=== PATIENT | female | born 1990 | race Caucasian/White ===

== ENCOUNTER 2022-04-11 15:33 | Emergency (ER) | payer OTHER, SELFPAY ==
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
[2022-04-11 15:37] VITALS: BP 135/82; PULSE 67; RESP 18; TEMP 36.8; O2SAT 100
--- NOTE | 2022-04-11 17:41 | PC.NURSE ---
Patient denies vaginal bleeding or abdominal cramping.
--- NOTE | 2022-04-11 17:45 | PC.NURSE ---
Dr. Diaz at bedside to assess pt.
--- NOTE | 2022-04-11 18:26 | PC.NURSE ---
Patient off unit to US.
--- NOTE | 2022-04-11 18:26 | PC.NURSE ---
pt at ultrasound at this time
[2022-04-11 18:51] LABS: Basophils Percent Auto 0.4 % (0.2-1.2); Eosinophils Absolute Auto 0.1 K/mm3 (0-0.3); Eosinophils Percent Auto 0.6 % (0-4.4); Hematocrit 38.8 % (37.0-47.0); Immature Granulocyte Absolute 0.03 K/mm3 (0.00-0.031); Immature Granulocyte Percent A 0.3 % (0-0.5); Lymphocytes Absolute Auto 2.65 K/mm3 (0.9-3.2); Lymphocytes Percent Auto 26.7 % (18.3-44.2); Mean Corpuscular HGB Conc 33.5 g/dl (32-36); Mean Corpuscular Hemoglobin 31.1 pg (26-34); Mean Corpuscular Volume 92.8 fl (80-100); Monocytes Absolute Auto 0.6 K/mm3 (0.1-0.6); Monocytes Percent Auto 5.8 % (2.6-8.5); Neutrophils Absolute Auto 6.6 K/mm3 (1.3-6.7); Neutrophils Percent Auto 66.2 % (45.5-73.1); Platelet Count Result 243 k/mm3 (150-375); Red Blood Count 4.18 M/mm3 (4.2-5.4); Red Cell Distribution Width 13.2 % (11.5-14.5); White Blood Count 9.9 K/mm3 (4.5-10.0)
[2022-04-11 18:55] LABS: Appearance Urine Clear (Clear); Bilirubin Urine Negative (Negative); Color Urine Yellow (Yellow); Glucose Urine UA Negative (Negative); Ketones Urine Negative (Negative); Leukocyte Esterase Ur Negative LEU/UL (Negative); Nitrate Urine Negative (Negative); Protein Urine Negative (Negative); Urobilinogen Urine 0.2 mg/dL (<2.0)
[2022-04-11 18:59] LABS: Add Urine Microscopic? YES; Blood Urine Trace-Intact (Negative)
[2022-04-11 19:06] LABS: Alanine Aminotransferase 11 U/L (6-35); Albumin Level 4.4 g/dL (3.5-5.1); Alkaline Phosphatase 72 U/L (38-126); Anion Gap 8 mmol/L (8-16); Aspartate Amino Transferase 22 U/L (14-36); Bilirubin,Total 0.2 mg/dL (0.2-1.3); Blood Urea Nitrogen 6 mg/dL (7-17); Calcium 8.8 mg/dL (8.4-10.2); Carbon Dioxide 25 mmol/L (22-30); Chloride 102 mmol/L (98-107); Estimated CRCL calculation 144 ml/min; Estimated Glomerular Filt Rate > 60; Glucose 139 mg/dL (65-110); Potassium 3.8 mmol/L (3.4-5.0); Sodium 135 mmol/L (137-145)
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
[2022-04-11 19:15] LABS: Budding Yeast Urine Present /hpf; Mucus Urine Rare /lpf; Squamous Epithelial Cell Urine Rare /hpf (Few); WBC Urine 0-3 /hpf
== END 2022-04-11 19:41 | disposition home or self-care (01) ==
PROVIDERS: Emergency Provider General Practice
DX: O9A.211 Injury, poisoning and certain other consequences of external causes complicating pregnancy, first trimester (principal); S13.4XXA Sprain of ligaments of cervical spine, initial encounter; Z96.649 Presence of unspecified artificial hip joint; Z3A.11 11 weeks gestation of pregnancy; V43.52XA Car driver injured in collision with other type car in traffic accident, initial encounter
CPT/HCPCS: 36415; 76801; 76817; 80053; 81001; 85025; 85461; 99284

== ENCOUNTER 2025-08-14 12:17 | Emergency (ER) | payer OTHER, SELFPAY ==
--- NOTE | ~2025-08-14 | CT_ITS ---
CT ABDOMEN AND PELVIS WITHOUT CONTRAST Clinical History: R flank pain, RLQ abd pain, hematuria, uti sx's Comparison: None Technique: Unenhanced axial images lung bases to symphysis pubis Coronal, sagittal reformats CT images acquired with automatic exposure control for dose reduction DLP: 1111 mGy-cm Findings: Without intravenous contrast, sensitivity for detecting visceral parenchymal abnormalities decreased. Lung bases: Clear. Visualized heart and pericardium: Unremarkable. Liver: Hepatomegaly. Steatosis. Gallbladder: Unremarkable. Spleen: Unremarkable. Pancreas: Unremarkable. Adrenal glands: Unremarkable. Kidneys: Right kidney- No hydronephrosis. No renal stones. Left kidney- No hydronephrosis. No renal stones. Distal esophagus/stomach: Unremarkable. Small bowel loops: Normal caliber and wall thickness. Colon: Normal caliber and wall thickness. Normal RLQ appendix. Nodes: No enlarged nodes. Peritoneum: No ascites. No free intraperitoneal air. Urinary bladder: Unremarkable. Uterus: Unremarkable. Adnexa: No masses. Bones: No acute bony abnormality. Soft tissues: Unremarkable. Unopacified abdominal aorta: No aneurysmal dilatation. IMPRESSION: 1. No acute findings. Reviewed, dictated and finalized at location R. IMPRESSION: 1. No acute findings.
[2025-08-14 12:24] VITALS: BP 150/96; PULSE 78; RESP 20; TEMP 36.6; O2SAT 97
--- OUTSIDE RECORDS SUMMARY | 2025-08-14 12:53 | XMS_ITS | Clinical Summary ---
Author Organization [facility] Address [address] [place] [address] Care Team Providers Care Rubber Compounder Supervisor Name Role Phone Gilmar Mckenna MD Unavailable Chanel De Leon MD Primary Care Provider [phone] Source Comments [facility],non-owned Affiliates and Associated Physician Practices is amultiple site organization consisting of ambulatory clinics and hospital sitesin [place], [place]. This disclosure is being madepursuant to the Care Everywhere program and may not contain all information available regarding this patient. Last updated 18.[facility] Allergies Active Allergy Reactions Criticality Noted Date Comments Adhesive Sensitivity Rash Medium 08/15/2020 Azithromycin Rash,Urticaria Medium 09/04/2016 Medications * Be aware that medications may not be up to date on this document. Alwaysverify current medications with the patient. magnesium 250 MG tablet Take 1 tablet by mouth at bedtime 020 Active vitamin D (CHOLECACIFEROL) 125 MCG (5000 UT) capsule Take 1 (one) capsule by mouth once daily Active norgestimate-ethi nyl estradiol (Ortho-Cyclen; Mononessa; Previfem; Sprintec) 0.25-35 MG-MCG tablet Take 1 (one) tablet by mouth once daily 84 tablet 4 07/29/2 024 Active clobetasol (Temovate) 0.05 % solution Apply to affected area as needed (as needed) Active EPINEPHrine (Epipen) 0.3 MG/0.3ML auto-injector pen Inject 0.3 mL into muscle once as needed for Anaphylaxis Active BD Insulin Syringe U/F 31G X 5/16 0.3 ML syringe 1 (one) Each by Injection route as directed Active cyclobenzaprine (Flexeril) 10 MG tabletIndications :Peripheral polyneuropathy Take 0.5 (one-half) tablet to 1 (one) tablet by mouth nightly as needed for Muscle Spasms 90 tablet 3 Active metFORMIN ER 24hr (Glucophage XR) 500 MG tabletIndications :Prediabetes Take 1 (one) tablet by mouth 2 times daily 180 tablet 3 Active Vit-Fe Fumarate-FA ( vitamin) 28-0.8 MG tablet Take 1 (one) tablet by mouth once daily 90 tablet 3 Active escitalopram (Lexapro) 20 MG tablet Take 0.5 (one-half) tablet by mouth once daily 90 tablet 4 Active Emgality 120 MG/ML auto-injector pen ADMINISTER 1 ML UNDER THE SKIN EVERY 30 DAYS 1 mL 11 Active PreviDent 5000 Booster Plus 1.1 % Active nitrofurantoin monohyd macro crystals (Macrobid) 100 MG capsule Take 1 (one) capsule by mouth every 12 hours Active Nurtec 75 MG tabletIndications :Chronic migraine without aura without status migrainosus, not intractable DISSOLVE ONE TABLET BY MOUTH ONCE DAILY NEEDED FOR MIGRAINE; MAX OF 1 TABLET PER DAY, 8 TABLETS PER 30 DAYS 8 tablet Active polyethylene glycol 3350 (Miralax) 17 GM/SCOOP powderIndications :Constipation, unspecified constipation type,Abdominal bloating Take 17 (seventeen) g by mouth once daily 510 g 1 Active famotidine (Pepcid) 20 MG tabletIndications :Abdominal bloating,Gastroes ophageal reflux disease without esophagitis Take 1 (one) tablet by mouth at bedtime for 14 days 14 tablet 2024 Active rimegepant (Nurtec) 75 MG tabletIndications :Chronic migraine without aura without status migrainosus, not intractable Take 75 mg by mouth once daily as needed for Migraine Max 1 tab/day, max 8 tabs/30 days. 8 tablet 025 2024 Discontinued Active Problems Patient Care Coordination No te Formatting of this note migh t be different from the original. Nopp/mfcc 05/2018 Problem Noted Date Diagnosed Date Catathrenia 05/30/2025 Chronic fatigue 05/30/2025 Excessive daytime sleepiness 05/30/2025 Sleep related hypoxia 05/30/2025 Class 2 obesity without seri ous comorbidity with body mass index (BMI) of 39.0 to 39.9 in adult 03/15/2025 Hot flashes 08/03/2024 Painful orthopaedic hardware 09/24/2021 Status post osteotomy 06/25/2021 Femoroacetabular impingement of right hip 2020 Chronic migraine without aur a without status migrainosus, not intractable 10/29/2020 Congenital dysplasia of right hip 10/17/2020 Right hip pain 08/27/2020 Small fiber neuropathy 04/23/2017 Prediabetes 04/14/2016 Overview (01/03/2020): Overview: HbA1C 6.1%-04/07 ; being followed by internet sales manager at [facility] Has been on metformin yrs ago and felt nauseated. Refer endocrine so can see dietary Peripheral polyneuropathy 03/27/2016 Obstructive sleep apnea syndrome 06/29/2014 ANNIE (generalized anxiety disorder) 05/11/2012 Overview (09/10/2022): Lexapro 20 mg daily PCOS (polycystic ovarian syndrome) 05/11/2012 Overview (09/10/2022): Treated with metformin in past Seasonal allergies Overview (09/10/2022): Rx - claritin +/- Flonase Encounters Date Type Department Care Team Description 08/10/2025 2:33 PM CDT - 08/10/2025 11:59 PM CDT Hospital Encounter [facility] OP DRAW STATION [address] [place] [address] Discharge Disposition: Home or Self Care 08/10/2025 9:00 AM CDT Office Visit [facility] - Internal Med [address] [place] [phone] Constipation, unspecified constipation type (Primary Dx); Abdominal bloating; Gastroesophageal reflux disease without esophagitis 08/10/2025 Travel 07/29/2025 Refill [facility] [address] [address] Gilmar Mckenna MD Refill Request 07/18/2025 1:30 PM CDT Office Visit [facility] - ENT [address] [place] [phone] Francois Ellis APRN-CNP Subjective hearing loss (Primary Dx); Chronic migraine without aura without status migrainosus, not intractable; Bruxism; Allergic rhinitis due to other allergic trigger, unspecified seasonality 07/18/2025 11:00 AM CDT Testing Visit [facility] - ENT [address] [place] [phone] Lowe, Nuha, AuD Tinnitus of both ears ; Hearing difficulty of both ears; Dizziness 07/18/2025 Travel 07/11/2025 2:15 PM CDT Office Visit [facility] - ENT [address] [place] [phone] Francois Ellis APRN-CNP Subjective hearing loss (Primary Dx); Chronic migraine without aura without status migrainosus, not intractable; Bruxism; Allergic rhinitis due to other allergic trigger, unspecified seasonality 07/11/2025 Travel 07/07/2025 Travel 06/28/2025 2:00 PM CDT - 06/28/2025 11:59 PM CDT Hospital Encounter [facility] - Ultrasound [address] [place] [address] Maya Valladares MD Discharge Disposition: Home or Self Care 06/28/2025 1:23 PM CDT - 06/28/2025 1:59 PM CDT Hospital Encounter [facility] Breast [facility] [address] [place] [address] Maya Valladares MD Discharge Disposition: Home or Self Care 06/07/2025 10:00 AM CDT Office Visit [facility] - Internal Med [address] [facility], [place] [address] Cellulitis of right little finger (Primary Dx) 06/07/2025 Travel 06/01/2025 8:20 AM CDT Procedure visit [facility] [address] [facility] [address] [place] [address] Gilmar Mckenna MD Chronic migraine without aura without status migrainosus, not intractable 06/01/2025 Telephone [facility] - Centralized Scheduling [address] [place] [phone] eRx Owens MD Appointment 05/29/2025 3:20 PM CDT Office Visit [facility] - Sleep Services [address] [facility] [address] [place] [phone] Komal Rich, APNP-MARKETING EDITOR MINA (obstructive sleep apnea) (Primary Dx); Sleep related hypoxia; Excessive daytime sleepiness; Chronic fatigue; Catathrenia; Prediabetes; Obesity (BMI 30-39.9); Air leak; CPAP use counseling 05/29/2025 Travel 05/24/2025 Results Follow-Up [facility] OP DRAW STATION [address] [place] [address] Maay Valladares MD 05/23/2025 12:35 PM CDT - 05/23/2025 11:59 PM CDT Hospital Encounter [facility] OP [facility]RAW ST[facility] [address] [place] [address] Discharge Disposition: Home or Self Care 05/23/2025 Travel 05/22/2025 Travel 05/22/2025 Telephone [facility] [address] [facility] [address] [place] [phone] Maya Valladares MD 05/20/2025 Refill [facility] [address] [facility] [address] [place] [address] Gilmar Mckenna MD Refill Request 05/19/2025 3:00 PM CDT Office Visit [facility] [address] [facility] [address] [place] [phone] Maya Valladares MD Hot flashes (Primary Dx); Intolerance to heat; Breast pain 05/19/2025 Travel from Last 3 Months Immunizations Immunization Administration Dates Next Due COVID PFIZER BIVALENT 12Y+ 30mcg/0.3ML Covid Moderna primary monova lent 12+ yr 0.5mL 11/09/2021 Covid Pfizer primary monoval ent 12+ yr 0.3mL Purple cap 09/26/2021,03/10/2021,02/17/2021 INFLUENZA VACCINE 09/11/2021 INFLUENZA VACCINE, TRIV. (FL UZONE; FLULAVAL; FLUARIX; AFLURIA TRIVALENT; 6MO+), 0.5 ML (IIV3) 11/09/2024 MMR 10/22/2022() TDAP (7yrs+) 08/04/2022,12/25/2018 Family History Medical History Relation Name Comments None Known Brother 1 None Known Brother 2 Arrhthymia Father afib Diabetes - Type 2 Father Hypertension Father Sleep Disorder - Sleep apnea Father Hemochromatosis Maternal Grandfather Diabetes - Type 2 Maternal Grandmother None Known Mother Aneurysm, Brain Paternal Grandmother Relation Name Status Comments Brother 1 Alive Brother 2 Alive Father Alive Maternal Grandfather Maternal Grandmother Mother Alive Paternal Grandmother Social History Tobacco Use Types Packs/Day Years Used Date Smoking Tobacco: Never Smokeless Tobacco: Never Tobacco Cessation:Counseling Given: Not Answered Alcohol Use Standard Drinks/Week Comments Not Currently 3 (1 standard drink = 0.6 oz pur e alcohol) monthly 3-4 drinks Overall Financial Resource Strain (CARDIA) Answe r Date Recorded How hard is it for you to pa y for the very basics like food, housing, medical care, and heating? Not hard at all 10/21/2022 PHQ-2 Answer Date Recorded Patient Health Questionnaire-2 Score 0 06/07/2025 Hunger Vital Sign Answer Date Recorded Within the past 12 months, y ou worried that your food would run out before you got the money to buy more. Never true 10/21/20 22 Within the past 12 months, t he food you bought just didn't last and you didn't have money to get more. Never true 10/21/2022 PRAPARE - Transportation Answer Date Re corded In the past 12 months, has l ack of transportation kept you from medical appointments or from getting medications? No 09/24 In the past 12 months, has l ack of transportation kept you from meetings, work, or from getting things needed for daily living? No 10/21/2022 Housing Stability Vital Sign Answer Juan Pablo e Recorded In the last 12 months, was t here a time when you were not able to pay the mortgage or rent on time? No 10/21/2022 Number of Places Lived in the Last Year Not on f ile 10/21/2022 In the last 12 months, was t here a time when you did not have a steady place to sleep or slept in a alf (including now)? No 10/21/2022 [place] Depression Scale Answer Date Recorded RETIRED: Total Score 2 10/24/2022 Last EPDS Self Harm Result Not on file 10/24 Education Answer Date Recorded What is the highest level of school you have completed or the highest degree you have received? 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 Not on file Not on fi le Last Filed Vital Signs Vital Sign Reading Time Taken Comments Blood Pressure 126/87 08/10/2025 8:58 AM CDT Pulse 85 08/10/2025 8:58 AM CDT Temperature 36.8 C (98.2 F) 06/07/2025 10:06 AM CDT Respiratory Rate 16 11/09/2024 1:09 PM MOBILE DEVELOPMENT MANAGER Oxygen Saturation 97% 08/10/2025 8:58 AM CDT Inhaled Oxygen Concentration - - Weight 102.1 kg (225 lb) 08/10/2025 8:58 AM CDT Height 160 cm (5' 3) 08/10/2025 8:58 AM CDT Body Mass Index 39.86 08/10/2025 8:58 AM CDT Plan of Treatment Upcoming Encounters Date Type Department Care Team (Late st Contact Info) Description 08/21/2025 3:00 PM CDT Office Visit [facility] Management [facility] [address] [facility] [address] [place] [address] [place] [address] [facility] [address] [place] [address] 08/24/2025 10:00 AM CDT Procedure visit [facility] [address] [place] [address] Gilmar Mckenna MD [address] [facility] [address] [place] [address] 08/24/2025 2:40 PM CDT Office Visit [facility] - Dermatology [address] [place] [address] [place] [address] Joycelyn Fenton MD [facility][note 2][address] [place] [address] 09/19/2025 9:00 AM CDT Office Visit [facility] [address] [place] [address], [facility] [address] [place] [address] 09/19/2025 10:45 AM CDT Clinical Support [facility] [address] [place] [address], [facility] [address] [place] [address] 11/02/2025 2:15 PM MOBILE DEVELOPMENT MANAGER Office Visit [facility] - Internal Med [address] [place] [address] [place] [address] Chanel De Leon MD [address] [place] [address] DIV [address] [phone] 11/21/2025 11:00 AM MOBILE DEVELOPMENT MANAGER Procedure visit [facility] [address] [place] [phone] Gilmar Mckenna MD [address] [place] [address] 11/29/2025 3:00 PM MOBILE DEVELOPMENT MANAGER Office Visit [facility] - Sleep Services [address] [facility] [address] [place] [address] Komal Rich, APOSMEL-MARKETING EDITOR [address] [facility] [address] [place] [address] Health Maintenance Due Date Last Done Comments HEPATITIS B VACCINE (1 of 3 - 19+ 3-dose series) 2009 HPV VACCINE (1 - 3-dose SCDM series) 2017 COVID-19 VACCINE ( season) 2025 10/07/2022, 11/09/2021, 09/26/2021, Additional history exists INFLUENZA VACCINE (#1) 2025 , 09/11/2021, 09/12/2020 (Done Outside Per Patient), Additional history exists PAP with HPV 05/04/2028 05/04/2023, 02/24/2017 DTAP/TDAP/TD VACCINES (3 - Td or Tdap) 08/04/2032 08/04/2022, 12/25/2018 ZOSTER VACCINE (1 of 2) 2040 HEPATITIS C SCREENING Completed 04/02/2022, 012 HIV SCREENING Completed 08/04/2022, 03/23, 06/27/2020 DEPRESSION SCREENING Completed 03/15/2025, 01/27/2024, 01/07/2023, Additional history exists HIB VACCINE Aged Out No longer eligi ble based on patient's age to complete this topic MENINGOCOCCAL (Group B) VACCINE SHARED DECISION-MAKING Aged Out No longer eligible based on patient's age to complete this topic MENINGOCOCCAL GROUPS A/C/Y/W VACCINE Aged Out No longer eligible based on patient's age to complete this topic PNEUMOCOCCAL VACCINE Aged Out No long er eligible based on patient's age to complete this topic Medical Devices Implanted Type Area Wildlife Policy Professional Device Identifier Shelf Expiration Date Model / Serial / Lot [place] Sut Nanotack 1.4mm Flx Insrtr 2 - [id number] Implanted:Qty: 1 on 04/02/2021 by Wil Eid MD at [facility] Right: Hip [place] [employer] 01/10/2022 [id number] / [id number] / [id number] Screw 3.5mm 6mm 36mm 2.5mm Ft Slf-Tap Implanted:Qty: 1 on 04/16/2021 by Wil Eid MD at [facility] Right: Hip S[employer]s [employer] 204.836 / / Screw 3.5mm 6mm 60mm Slf-Tap Sm Hex Sckt Implanted:Qty: 1 on 04/16/2021 by Wil Eid MD at [facility] Right: Hip [employer] 204.860 / / Screw 3.5mm 6mm 85mm Ft Cortx Slf-Tap Implanted:Qty: 1 on 04/16/2021 by Wil Eid MD at [facility] Right: Hip [employer] 204.685 / / Screw 3.5mm 6mm 110mm Ft Cortx Slf-Tap Implanted:Qty: 1 on 04/16/2021 by Wil Eid MD at [facility] Right: Hip [employer] 204.710 / / Screw 4.5mm 8mm 80mm Cortx Slf-Tap Lg Implanted:Qty: 1 on 04/16/2021 by Wil Eid MD at [facility] Right: Hip [employer] 214.880 / / Explanted Type Area Wildlife Policy Professional Device Identifier Shelf Expiration Date Model / Serial / Lot Screw 3.5mm 6mm 60mm Slf-Tap Sm Hex Sckt Explanted:Qty: 1 on 04/16/2021 at [facility] Right: Hip Synthes [facility] 204.860 / / Screw 3.5mm 6mm 100mm Ft Cortx Slf-Tap Explanted:Qty: 1 on 04/16/2021 at [facility] Right: Hip [employer]s [facility] 204.700 / / Procedures Procedure Name Priority Date/Time Associated Diagnosis Comments COMPREHENSIVE METABOLIC PANEL Routine 08/10/2025 2:49 PM CDT Constipation, unspecified constipation type Abdominal bloating CBC W AUTO DIFFERENTIAL Routine 08/10/2025 2:49 PM CDT Constipation, unspecified constipation type Abdominal bloating AUDIOLOGY/TYMPANOMETR Y ORDER Routine 07/18/2025 11:24 AM CDT US BREAST LEFT LTD Routine 06/28/2025 2: 15 PM CDT Breast pain, left MAMMO BILAT DIAGNOSTIC W JUNIOR Routine 06/28/2025 1:48 PM CDT Breast pain, left TSH REFLEX FREE T4 Routine 05/23/2025 1: 05 PM CDT Hot flashes HPV DETECTION HIGH RISK LEA Routine 05/04/2023 3:58 PM CDT Encounter for routine gynecological examination with Papanicolaou smear of cervix HIV-1 HIV-2 ANTIBODY + HIV P24 AG PANEL Routine 08/04/2022 Supervision of other normal , antepartum HEPATITIS C AB SCREEN RFLX NAAT QUANT STAT 04/02/2022 4:19 PM CDT Encounter for supervision of other normal in first trimester from Last 3 Months or Most Recently Relevant to Health Maintenance Results * CBC W/ DIFFERENTIAL (08/10/2025 2:49 PM CDT) [facility] Signature WBC 8.9 4.0 - 10.7 x10E9/L 08/10/2025 3:53 PM [facility] RBC Count 4.62 3.90 - 5.20 x10E12/L 08/10/2025 3:53 PM [facility] Hemoglobin 14.1 11.9 - 15.8 g/dL 08/10/2025 3:53 PM [facility] Hematocrit 42.3 34.8 - 46.1 % 08/10/2025 3:53 PM [facility] MCV 91.6 80.0 - 98.0 fL 08/10/2025 3:53 PM [facility] MCH 30.5 26.7 - 33.6 pg 08/10/2025 3:53 PM [facility] MCHC 33.3 31.7 - 36.3 g/dL 08/10/2025 3:53 PM [facility] RDW-CV 12.7 11.3 - 14.8 % 08/10/2025 3:53 PM [facility] Platelet Count 316 150 - 420 x10E9/L 08/10/2025 3:53 PM [facility] MPV 9.6 7.8 - 11.4 fL 08/10/2025 3:53 PM [facility] Neutrophil % 54.6 41.0 - 74.0 % 08/10/2025 3:53 PM [facility] Lymphocyte % 37.9 17.0 - 47.0 % 08/10/2025 3:53 PM [facility] Monocyte % 5.3 3.0 - 11.0 % 08/10/2025 3:53 PM [facility] Eosinophil % 1.2 0.0 - 7.0 % 08/10/2025 3:53 PM [facility] Basophil % 0.6 0.0 - 1.6 % 08/10/2025 3:53 PM [facility] Immature Granulocytes % 0.4 0.0 - 1.0 % 08/10/2025 3:53 PM CDT [facility] Neutrophil Absolute 4.86 1.60 - 7.50 x10E9/L 08/10/2025 3:53 PM T [facility] Lymphocyte Absolute 3.37 1.00 - 4.40 x10E9/L 08/10/2025 3:53 PM [facility] Monocyte Absolute 0.47 0.15 - 1.00 x10E9/L 08/10/2025 3:53 PM [facility] Eosinophil Absolute 0.11 0.00 - 0.60 x10E9/L 08/10/2025 3:53 PM [facility] Basophil Absolute 0.05 0.00 - 0.13 x10E9/L 08/10/2025 3:53 PM [facility] Blood BLOOD SPECIMEN / Unknown Lab Venipuncture / Unknown 08/10/2025 2:49 PM CDT 08/10/2025 3:39 PM CDT Tommie Mckeon MD LAB - HEMATOLOGY ORDERABLES Fi nal Result [facility] [address] [place] [address], [facility] [phone] * (ABNORMAL) COMPREHENSIVE METABOLIC PANEL (08/10/2025 2:49 PM CDT) BUN 8 7 - 26 mg/dL 08/10/2025 4:16 PM [facility] Creatinine 0.59 0.56 - 0.96 mg/dL 08/10/2025 4:16 PM [facility] Sodium 135(L) 136 - 145 mmol/L 08/10/2025 4:16 PM [facility] Potassium 3.6 3.5 - 4.5 mmol/L 08/10/2025 4:16 PM [facility] Chloride 102 98 - 107 mmol/L 08/10/2025 4:16 PM [facility] CO2 24 22 - 29 mmol/L 08/10/2025 4:16 PM [facility] Glucose 186(H) 70 - 99 mg/dL 08/10/2025 4:16 PM [facility] Calcium 8.8 8.4 - 10.2 mg/dL 08/10/2025 4:16 PM [facility] Protein Total 7.2 6.0 - 8.3 g/dL 08/10/2025 4:16 PM [facility] Albumin 4.2 3.4 - 5.0 g/dL 08/10/2025 4:16 PM [facility] Bilirubin Total 0.2 0.2 - 1.2 mg/dL 08/10/2025 4:16 PM [facility] Alkaline Phosphatase 81 40 - 150 U/L 08/10/2025 4:16 PM [facility] ALT 17 5 - 55 U/L 08/10/2025 4:16 PM [facility] AST 15 5 - 34 U/L 08/10/2025 4:16 PM [facility] Anion Gap 9 6 - 16 08/10/2025 4:16 PM [facility] BUN/Creatinine Ratio 14 7 - 23 08/10/2025 4:16 PM [facility] Osmolality Calculated 283 275 - 295 mOsm/kg 08/10/2025 4:16 PM [facility] Albumin/Globulin Ratio 1.4 1.1 - 2.3 08/10/2025 4:16 PM [facility] eGFR by CKD-EPI >90 >=90 mL/min/1.7 3 m2 08/10/2025 4:16 PM [facility] Comment:Estimated Glomerular Filtration Rate (eGFR) calculated using the CKD-EPI Creatinine Equation (2020), per the National Kidney Foundation and [place] [employer] Nephrology recommendations. Blood BLOOD SPECIMEN / Unknown Lab Venipuncture / Unknown 08/10/2025 2:49 PM CDT 08/10/2025 3:38 PM CDT us Tommie Mckeon MD LAB - CHEMISTRY ORDERABLES Fin al Result [facility] [address] [place] [address], [facility] [phone] * AUDIOLOGY/TYMPANOMETRY ORDER (07/18/2025 11:24 AM CDT) Narrative Nuha Hazel AuD - 07/18/2025 11:24 AM CDT History: Laura Hernandes arrived for a hearing evaluation. Patient reports she continues to have difficulty hearing, tinnitus, and dizziness; all of which she perceives as being worse than before. Results: Puretone air/bone conduction testing revealed normal hearing in both ears. Speech understanding was excellent in the right ear and excellent in the left ear. When compared to her last test, no significant changes were noted. Immittance measures revealed a Type A tympanogram in the right ear, indicating normal middle ear function. Results for the left ear revealed a Type A tympanogram, indicating normal middle ear function in that ear. These results were discussed in detail with the patient and all pertinent questions were answered. Recommendations: 1) ENT consult. 2) Re check per medical recommendation or if a change in hearing is suspected. 3) Hearing protection in noise. Mateo Mcintosh. [facility]-A Clinical Button Reclaimer [facility]-Department of Otolaryngology/Audiology Center for [facility] [address] [place] [address] ([facility]) [place] [address] Nuha Hazel Mateo AUDIOLOGY SERVICES ORDERABLES F inal Result * US BREAST LEFT LTD( most commonly ordered , not the whole breast) (06/28/2025 2:15 PM CDT) Anatomical Region Laterality Modality Breast Left Ultrasound 06/28/2025 2:20 PM CDT Impressions 06/28/2025 2:21 PM CDT IMPRESSION: No mammographic or sonographic evidence of malignancy. RECOMMENDATION: As the mammographic and ultrasonographic evaluation of the breast is unremarkable, any further evaluation of the area of clinical concern should be based on physical exam findings. Pending no interval breast problems, recommend resuming yearly screening mammography. Patient was notified of the findings and recommendations at the time of the examination. FINAL BI-RADS CATEGORY 1: NEGATIVE . > Interpreting Provider: Jf Harrison MD on 06/28/2025 2:21 PM Narrative 06/28/2025 2:21 PM CDT EXAMINATION: BILATERAL DIGITAL DIAGNOSTIC MAMMOGRAM INCLUDING CAD AND BILATERAL DIGITAL BREAST TOMOSYNTHESIS; LEFT BREAST SONOGRAM HISTORY: 34-year-old female with focal pain in left breast upper outer quadrant COMPARISON: None TECHNIQUE: Full field digital mammographic views of BILATERAL breasts were performed, including computer aided detection (CAD) and BILATERAL digital breast tomosynthesis (DBT). Tomosynthesis (3-D) and reconstructed C-view (synthetic 2-D) images are included in this examination. Computer aided detection was performed. Directed ultrasound evaluation of LEFT was performed. BREAST PARENCHYMAL COMPOSITION: There are scattered areas of fibroglandular density. MAMMOGRAM FINDINGS: No focal mass, architectural distortion, or suspicious calcification is identified within either breast. SONOGRAM FINDINGS: There is no focal abnormal solid or cystic lesion suggestive of malignancy in the area of recent concern in the left breast upper outer quadrant. us Maya Valladares MD US ORDERABLES Final Result * Mammo Bilat Diagnostic W Junior (06/28/2025 1:48 PM CDT) Anatomical Region Laterality Modality Breast Bilateral Mammography 06/28/2025 2:20 PM CDT Impressions 06/28/2025 2:21 PM CDT IMPRESSION: No mammographic or sonographic evidence of malignancy. RECOMMENDATION: As the mammographic and ultrasonographic evaluation of the breast is unremarkable, any further evaluation of the area of clinical concern should be based on physical exam findings. Pending no interval breast problems, recommend resuming yearly screening mammography. Patient was notified of the findings and recommendations at the time of the examination. FINAL BI-RADS CATEGORY 1: NEGATIVE . > Interpreting Provider: Jf Harrison MD on 06/28/2025 2:21 PM Narrative 06/28/2025 2:21 PM CDT EXAMINATION: BILATERAL DIGITAL DIAGNOSTIC MAMMOGRAM INCLUDING CAD AND BILATERAL DIGITAL BREAST TOMOSYNTHESIS; LEFT BREAST SONOGRAM HISTORY: 34-year-old female with focal pain in left breast upper outer quadrant COMPARISON: None TECHNIQUE: Full field digital mammographic views of BILATERAL breasts were performed, including computer aided detection (CAD) and BILATERAL digital breast tomosynthesis (DBT). Tomosynthesis (3-D) and reconstructed C-view (synthetic 2-D) images are included in this examination. Computer aided detection was performed. Directed ultrasound evaluation of LEFT was performed. BREAST PARENCHYMAL COMPOSITION: There are scattered areas of fibroglandular density. MAMMOGRAM FINDINGS: No focal mass, architectural distortion, or suspicious calcification is identified within either breast. SONOGRAM FINDINGS: There is no focal abnormal solid or cystic lesion suggestive of malignancy in the area of recent concern in the left breast upper outer quadrant. us Maya Valladares MD MAMMO ORDERABLES Final Result * TSH REFLEX FREE T4 (05/23/2025 1:05 PM CDT) TSH 2.215 0.350 - 4.940 uIU/mL 05/23/2025 2:00 PM CDT [facility] Blood BLOOD SPECIMEN / Unknown Lab Venipuncture / Unknown 05/23/2025 1:05 PM CDT 05/23/2025 1:12 PM CDT us Maya Valladares MD LAB - CHEMISTRY ORDERABLES Final Result [address] [address], [facility] [phone] * HPV DETECTION HIGH RISK LEA (05/04/2023 3:58 PM CDT) High Risk Human Papilloma Result Not detected Not detected 05/08/2023 2:37 PM CDT [facility] High Risk Human Papilloma Interp 05/08/2023 2:37 PM CDT [facility] Comment:High Risk Human Grover lloma Virus was Not Detected. Pathology/Cytolo gy MISCELLANEOUS SAMPLES / Unknown 05/04/2023 3:58 PM CDT 05/05/2023 12:38 PM CDT Narrative [facility] - 05/08/2023 2:37 PM CDT Nucleic acid isolated from the specimen was analyzed with a nucleic acid amplification test (FDA approved Gen-Probe HPV Assay) to detect high risk human papilloma virus (Types: 16, 18, 31, 33, 35, 39, 45, 51, 52, 56, 58, 59, 66, and 68). The reference range is Not Detected. Comment: These test results should not be used as the sole basis for clinical assessment and treatment of patients. These results should always be correlated with other available data (cytology, histology, and clinical information). Lora Colon MD LAB - MICROBIOLOGY ORDERABLES Fi nal Result Performing Organization Address City/[facility] Co de Phone Number [facility] [address] [place] [address], [facility] [phone] * HIV-1 HIV-2 ANTIBODY + HIV P24 AG PANEL (08/04/2022) Pathologist [facility] HIV Screen 4th Generation w Reflex NON-REACT NEAL NON-REACT NEAL [facility] Comment: HIV-1 antigen and HIV-1/HIV-2 antibodies were not detected. There is no laboratory evidence of HIV infection. PLEASE NOTE: This information has been disclosed to you from records whose confidentiality may be protected by state law. If your state requires such protection, then the state law prohibits you from making any further disclosure of the information without the specific written consent of the person to whom it pertains, or as otherwise permitted by law. A general authorization for the release of medical or other information is NOT sufficient for this purpose. For additional information please refer to http://education.Jammit/faq/OGA556 (This link is being provided for informational/ educational purposes only.) The performance of this assay has not been clinically validated in patients less than 2 years old. Test Performed at: [facility] [address] [place] [address] SHANIKA CAMPOS DO,MPH Blood BLOOD SPECIMEN / Unknown 08/04/2022 08/04/2022 1:42 PM CDT Lora Colon MD LAB - CHEMISTRY ORDERABLES Final Result [facility] [address] [place] [address] * HEPATITIS C AB SCREEN RFLX NAAT QUANT (04/02/2022 4:19 PM CDT) Pathologist [facility] Hepatitis C Antibody Non-react neal Non-reac tive 04/02/2022 5:57 PM CDT [facility] Comment:Hepatitis C Antibody screen indicates no serologic evidence of past or current infection with Hepatitis C Virus. Patients with unexplained liver disease who are immunocompromised or suspected of having acute Hepatitis C infection may benefit from Nucleic Acid Test (RAFFI) for Hepatitis C Viral RNA to confirm Hepatitis C status. Blood BLOOD SPECIMEN / Unknown Lab Venipuncture / Unknown 04/02/2022 4:19 PM CDT 04/02/2022 4:49 PM CDT us Lesa Avila MD LAB - CHEMISTRY ORDERABLES Final Result [facility] [address] [place] [address], [facility] [phone] from Last 3 Months or Most Recently Relevant to Health Maintenance Insurance [facility] Advance Directives * Full Code (Latest Code Status on File) Date Activated Date Inactivated Comments 10/21/2022 5:18 PM 10/24/2022 4:17 PM * Full Code Date Activated Date Inactivated Comments 07/22/2022 3:33 PM 07/22/2022 7:13 PM * Full Code Date Activated Date Inactivated Comments 04/16/2021 1:22 PM 04/19/2021 5:46 PM * Full Code Date Activated Date Inactivated Comments 12/26/2018 9:14 AM 12/28/2018 3:11 PM Care Teams Rubber Compounder Supervisor Relationship Specialty Start Date End Date Chanel De Leon MD [address] [address] PCP - General Internal Medicine 08/10/25 Gilmar Mckenna MD [facility] [address] [place] [address] Neurology 06/23/24
--- OUTSIDE RECORDS SUMMARY | 2025-08-14 12:53 | XMS_ITS | Encounter Summary ---
Author Organization [facility] Health Address [address] [facility] [place] [address] Care Team Providers Care Professor Of Floriculture Name Role Phone Marty Harris MD Unavailable Rosina Sutton MD Primary Care Provider [phone] Nandini Zaldivar MD Unavailable [phone] Antoine Díaz MD Unavailable [phone] Antoine Díaz MD Primary Care Provider [phone] Gilmar Mckenna MD Unavailable Rex Owens MD Primary Care Provider Chanel De Leon MD Primary Care Provider [phone] Reason for Visit * Reason Onset Date Comments Concerns 07/22/2022 Concerns during Encounter Details Date Type Department Care Team (Late st Contact Info) Description 07/22/2022 Telephone [facility] [address] [place] [address] Lora Colon MD [address] [facility] [address] [place] [address] Concerns (Concerns during ) Social History Tobacco Use Types Packs/Day Years Used Date Smoking Tobacco: Never Smokeless Tobacco: Never Alcohol Use Standard Drinks/Week Comments Never 1 (1 standard drink = 0.6 oz pur e alcohol) weekly Overall Financial Resource Strain (CARDIA) Answe r Date Recorded How hard is it for you to pa y for the very basics like food, housing, medical care, and heating? Not hard at all 07/22/2022 PHQ-2 Answer Date Recorded PHQ2 TOTAL SCORE 0 07/16/2022 Hunger Vital Sign Answer Date Recorded Within the past 12 months, y ou worried that your food would run out before you got the money to buy more. Never true 07/22/20 22 Within the past 12 months, t he food you bought just didn't last and you didn't have money to get more. Never true 07/22/2022 PRAPARE - Transportation Answer Date Re corded In the past 12 months, has l ack of transportation kept you from medical appointments or from getting medications? No 06/25 In the past 12 months, has l ack of transportation kept you from meetings, work, or from getting things needed for daily living? No 07/22/2022 Housing Stability Vital Sign Answer Juan Pablo e Recorded In the last 12 months, was t here a time when you were not able to pay the mortgage or rent on time? No 07/22/2022 In the last 12 months, how many places have you lived? 1 07/22/2022 In the last 12 months, was t here a time when you did not have a steady place to sleep or slept in a jail (including now)? 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 No / Unsure 07/22/2022 3:37 PM CDT documented as of this encounter Functional Status * Is person deaf or have serious hearing difficulty? Answer Date of Assessment Author No 07/22/2022 5:52 PM CDT Lucina Cervantes RN * Is person blind or have serious difficulty seeing? Answer Date of Assessment Author No 07/22/2022 5:52 PM CDT Lucina Cervantes RN * Does person have serious difficulty walking/climbing stairs? Answer Date of Assessment Author No 07/22/2022 5:52 PM CDT Lucina Cervantes RN * Does person have difficulty dressing/bathing? Answer Date of Assessment Author No 07/22/2022 5:52 PM CDT Lucina Cervantes RN * Does person have difficulty doing errands alone? Answer Date of Assessment Author No 07/22/2022 5:52 PM CDT Lucina Cervantes RN documented as of this encounter Mental Status * Does person have difficulty concentrating/remembering/making decisions? Answer Entry Date Author No 07/22/2022 5:52 PM ASMITAT Lucina Cervantes RN documented in this encounter Miscellaneous Notes * Telephone Encounter - Debbie Kwok RN - 07/22/2022 2:43 PM CDT RN returned call to pt. Per pt she starting not feeling well over the weekend and having swelling. She also reports loose stool and body sweats. She went to work today and still not feeling well. Shetook her BP 148/92 and again 156/99. Pt having swelling in arms and legs and LLQ pain she relates to round ligaments. Denies heaadche, vision changes or RUQ pain. RN advised with pt symptoms and blood pressure she needs to be seen in [facility] for eval. Pt agreeable and will go now * Telephone Encounter - Walters Sabrina - 07/22/2022 2:30 PM CDT Pt is calling with some concerns. She states she started having dizziness and high blood pressure today of 148/92. Pt states she had some swelling over the weekend, as well. She did stay off of her feet yesterday and is very concerned. # [phone] documented in this encounter Plan of Treatment Upcoming Encounters Date Type Department Care Team (Late st Contact Info) Description 08/21/2025 3:00 PM CDT Office Visit [facility] Health Weight Management Services [address] [facility], [address] [place] [address] [place] [address] [facility] [address] [place] [address] 08/24/2025 10:00 AM CDT Procedure visit [address] [place], [place] [address] [place] [address] [place] [phone] 08/24/2025 2:40 PM CDT Office Visit [facility] Derm[facility] [address] [place] [address] [place] [address] Joycelyn Fenton MD [facility] [place] [address] 09/19/2025 9:00 AM CDT Office Visit [facility] Weight Management Services [address] [place] [address], [address] [address] 09/19/2025 10:45 AM CDT Clinical Support [facility] Health Weight Management Services [address] [place] [address], [facility] [address] [place] [address] 11/02/2025 2:15 PM HOME ECONOMIST CONSUMER SERVICE Office Visit [facility] Internal Med [address] [place] [phone] Chanel De Leon MD [address] [place] [address] [place] [phone] 11/21/2025 11:00 AM HOME ECONOMIST CONSUMER SERVICE Procedure visit [facility] Neurosciences [address] [place] [address] Gilmar Mckenna MD [address] [place] [phone] 11/29/2025 3:00 PM HOME ECONOMIST CONSUMER SERVICE Office Visit [facility] Sleep Services [address] [place] [address] Komal Rich, APNP-DIRECTOR [place]ANGE [address] [place] [address] documented as of this encounter Visit Diagnoses Not on filedocumented in this encounter Care Teams Professor Of Floriculture Relationship Specialty Start Date End Date Marty Harris MD [address] [facility] [address] [place] [address] PCP - Attributed-[facility] STL 05/23/20 05/11/23 Rosina Sutton MD [address] [place] [address] PCP - General Internal Medicine 02/25/21 09/16/23 Antoine Díaz MD [address] [facility] [place] [phone] PCP - General Internal Medicine 09/17/23 07/27/24 Rex Owens MD [address] [facility] [place] [phone] PCP - General Internal Medicine 08/03/24 08/09/25 Chanel De Leon MD [address] DIV OF INT MED [address] [place] [phone] PCP - General Internal Medicine 08/10/25 Nandini Zaldivar MD [address] INTERNAL MEDICINE [place] Resident - PCP Student Resident 02/25/21 05/19/23 Antoine Díaz MD [address] [place] [phone] Resident - PCP Internal Medicine 05/20/23 09/16/23 Gilmar Mckenna MD [address] [phone] Neurology 06/23/24 documented as of this encounter
--- OUTSIDE RECORDS SUMMARY | 2025-08-14 12:53 | XMS_ITS | Encounter Summary ---
Author Organization [facility] Address [address] [place] [address] Care Team Providers Care Direct Response Consultant Name Role Phone Marty Harris MD Unavailable Rosina Sutton MD Primary Care Provider [phone] Nandini Zaldivar MD Unavailable [phone] Antoine Díaz MD Unavailable [phone] Antoine Díaz MD Primary Care Provider Gilmar Mckenna MD Unavailable Rex Owens MD Primary Care Provider Chanel De Leon MD Primary Care Provider Reason for Visit * Reason Onset Date Comments MEDICATION REFILL 04/30/2021 Encounter Details Date Type Department Care Team (Late st Contact Info) Description 04/30/2021 Refill [facility] Orthopedic Surgery [address] [place] [address] Wil Eid MD [address] [place] [phone] MEDICATION REFILL Social History Tobacco Use Types Packs/Day Years Used Date Smoking Tobacco: Never Smokeless Tobacco: Never Alcohol Use Standard Drinks/Week Comments Yes 1 (1 standard drink = 0.6 oz pur e alcohol) weekly Comments No Sex and Gender Information Value Date Recorded Sex Assigned at Female 10/28/2020 10:11 PM WOOD MILLING MACHINE OPERATOR Legal Sex Female 1:47 PM WOOD MILLING MACHINE OPERATOR Gender Identity Female 10/28/2020 10:11 PM WOOD MILLING MACHINE OPERATOR Sexual Orientation Straight 10/28/2020 10 :11 PM WOOD MILLING MACHINE OPERATOR 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 Answer Date of Assessment Author No 04/16/2021 4:02 PM CDT Jonatan Jernigan RN * Is person blind or have serious difficulty seeing? Answer Date of Assessment Author No 04/16/2021 4:02 PM ASMITAT Jonatan Jernigan RN * Does person have serious difficulty walking/climbing stairs? Answer Date of Assessment Author Yes 04/16/2021 4:02 PM ASMITAT Jonatan Jernigan RN * Does person have difficulty dressing/bathing? Answer Date of Assessment Author Yes 04/16/2021 4:02 PM CDT Jonatan Jernigan RN * Does person have difficulty doing errands alone? Answer Date of Assessment Author Yes 04/16/2021 4:02 PM Jonatan Rosales RN documented as of this encounter Mental Status * Does person have difficulty concentrating/remembering/making decisions? Answer Entry Date Author No 04/16/2021 4:02 PM Jonatan Rosales RN documented in this encounter Plan of Treatment Upcoming Encounters Date Type Department Care Team (Late st Contact Info) Description 08/21/2025 3:00 PM CDT Office Visit [facility] Weight Management Services [address] [facility], [address] [place] [address] [place] [address] [facility] [address] [place] [address] 08/24/2025 10:00 AM CDT Procedure visit [facility] Health Neurosciences [address] [facility] [address] [place] [address] Gimlar Mckenna MD [address] [facility] [address] [place] [phone] 08/24/2025 2:40 PM CDT Office Visit [facility] Dermatology [address] [place] [address], [place] [address] Joycelyn Fenton MD [address] [place] [address] 09/19/2025 9:00 AM CDT Office Visit [facility] Weight Management Services [address] [place] [address], [facility] [address] [place] [address] 09/19/2025 10:45 AM CDT Clinical Support [facility] Weight Management Services [address] [facility], [facility] [address] [place] [address] 11/02/2025 2:15 PM WOOD MILLING MACHINE OPERATOR [facility] [address] [place] [address], [place] [address] Chanel De Leon MD [facility] [facility] MED [address] [place] [phone] 11/21/2025 11:00 AM WOOD MILLING MACHINE OPERATOR Procedure visit [facility] Health Neurosciences [address] [place] [address] [address] [place] [address] [place] [address] [place] [address] [address] [place] [phone] 11/29/2025 3:00 PM WOOD MILLING MACHINE OPERATOR Office Visit [facility] [address] [facility] [address] [place] [address] Komal Rich, SOCO-DREDGE MASTER [address] [facility] [address] [place] [address] documented as of this encounter Visit Diagnoses Diagnosis Surgical site infection- Primary documented in this encounter Additional Health Concerns Infection Onset Date Last Indicated Resolved Time COVID-19 Under Investigation 11/11/2021 11/11/2021 11/11/2021 11:20 PM WOOD MILLING MACHINE OPERATOR documented as of this encounter Care Teams Direct Response Consultant Relationship Specialty Start Date End Date Marty Harris MD [address] DIV OF [facility] [place] [address] PCP - Attributed-[facility] EHP STL 05/23/20 05/11/23 Rosina Sutton MD [address] DIV OF [facility] [place] [address] PCP - General Internal Medicine 02/25/21 09/16/23 Antoine Díaz MD [address] [facility] [place] [phone] PCP - General Internal Medicine 09/17/23 07/27/24 Rex Owens MD [address] [facility] [place] [phone] PCP - General Internal Medicine 08/03/24 08/09/25 Chanel De Leon MD [address] DIV OF [address] [phone] PCP - General Internal Medicine 08/10/25 Nandini Zaldivar MD [address] DIV OF [facility] [place]NAL [place] Resident - PCP Student Resident 02/25/21 05/19/23 Antoine Díaz MD [address] [facility] [place] [address] Resident - PCP Internal Medicine 05/20/23 09/16/23 Gilmar Mckenna MD [address] [facility] [address] [place] [address] Neurology 06/23/24 documented as of this encounter
--- OUTSIDE RECORDS SUMMARY | 2025-08-14 12:53 | XMS_ITS | Encounter Summary ---
Author Organization [facility] Address [address] [place] [address] Care Team Providers Care Skein Dyer Name Role Phone Nandini Zaldivar MD Unavailable [phone] Marquez Wu MD Primary Care Provider [phone] Marty Harris MD Unavailable Nandini Zaldivar MD Primary Care Provider Nandini Zaldivar MD Primary Care Provider Rosina Sutton MD Primary Care Provider [phone] Nandini Zaldivar MD Unavailable [phone] Antoine Díaz MD Unavailable [phone] Antoine Díaz MD Primary Care Provider [phone] Gilmar Mckenna MD Unavailable Rex Owens MD Primary Care Provider Chanel De Leon MD Primary Care Provider [phone] Reason for Visit * Reason Onset Date Comments Medication Issue 01/04/2020 Victoza Encounter Details Date Type Department Care Team (Late st Contact Info) Description 01/04/2020 Telephone [facility] Internal Medicine [address] [place] [address] Marquez Wu MD [address] [place] [address] Medication Issue (Victoza) Social History Tobacco Use Types Packs/Day Years Used Date Smoking Tobacco: Never Smokeless Tobacco: Never Alcohol Use Standard Drinks/Week Comments No 1 (1 standard drink = 0.6 oz pur e alcohol) Comments No Sex and Gender Information Value Date Recorded Sex Assigned at Female 10/28/2020 10:11 PM COOK JELLY Legal Sex Female 1:47 PM COOK JELLY Gender Identity Female 10/28/2020 10:11 PM COOK JELLY Sexual Orientation Straight 10/28/2020 10 :11 PM COOK JELLY documented as of this encounter Functional Status * Is person deaf or have serious hearing difficulty? Answer Date of Assessment Author No 12/24/2018 4:30 PM COOK JELLY Mandie Santoro i, RN * Is person blind or have serious difficulty seeing? Answer Date of Assessment Author No 12/24/2018 4:30 PM COOK JELLY Mandie Santoro i, RN * Does person have serious difficulty walking/climbing stairs? Answer Date of Assessment Author No 12/24/2018 4:30 PM COOK JELLY Mandie Santoro i, RN * Does person have difficulty dressing/bathing? Answer Date of Assessment Author No 12/24/2018 4:30 PM Mandie Nguyễn i, RN * Does person have difficulty doing errands alone? Answer Date of Assessment Author No 12/24/2018 4:30 PM COOK JELLY Mandie Santoro i, RN documented as of this encounter Mental Status * Does person have difficulty concentrating/remembering/making decisions? Answer Entry Date Author No 12/24/2018 4:30 PM Mandie Nguyễn i, RN documented in this encounter Miscellaneous Notes * Telephone Encounter - Marquez Wu MD - 01/04/2020 11:27 AM CST Called pharmacy. Clarified that 2.4mg is the dose we would like to reach after the ramp up. Patient will have to use 2 injections of 1.2mg every day. Marquez Wu MD 01/04/2020 11:28 AM JELLY * Telephone Encounter - Gregory Trevino - 01/04/2020 8:18 AM CST Ayse rothman/Manju called to inquire about directions/dosing on the pt's Victoza prescription. States usually the dosing for Victoza doesn't go up to 2.4 mg, and therefore the pt would need to use to pens to make that dose. Reports that Saxenda is usually indicated for weight management, and comesthe same way as the Victoza but dosed higher, and wondered if the provider wanted to try that instead. Provided call back number [phone] Message routed to provider for review and assistance JELLY documented in this encounter Plan of Treatment Upcoming Encounters Date Type Department Care Team (Late st Contact Info) Description 08/21/2025 3:00 PM CDT Office Visit [facility] Weight Management Services [address] [place] [address], [facility] [address] [place] [address] [place] [id number] [place] [address] 08/24/2025 10:00 AM CDT Procedure visit [facility] Neurosciences [address] [facility] [address] [place] [address] Gilmar Mckenna MD [address] [facility] [address] [place] [phone] 08/24/2025 2:40 PM CDT Office Visit [facility] Dermatology [address] [facility], [facility] [place] [phone] Joycelyn Fenton MD [address] [place] [address] 09/19/2025 9:00 AM CDT Office Visit [facility] Weight Management Services [address] [facility], [facility] [address] [place] [address] 09/19/2025 10:45 AM CDT Clinical Support [facility] Weight Management Services [address] [facility], [address] [place] [address] 11/02/2025 2:15 PM COOK JELLY Office Visit [facility] Group - Internal Med [address] [facility], [place] [phone] Chanel De Leon MD [address] [facility] OF INT MED [address] [place] [phone] 11/21/2025 11:00 AM COOK JELLY Procedure visit [facility] Neurosciences [address] [facility] [address] [place], [place] [phone] Gilmar Mckenna MD [address] [facility] [address] [place] [phone] 11/29/2025 3:00 PM COOK JELLY Office Visit [facility]ician Group - Sleep Services [address] [facility] [address] [place] [address] Komal Rich, SOCO-ASSISTANT [address] [facility] [address] [place] [phone] documented as of this encounter Visit Diagnoses Not on filedocumented in this encounter Additional Health Concerns Infection Onset Date Last Indicated Resolved Time COVID-19 Under Investigation 02/20/2020 02/20/2020 02/20/2020 11:56 PM CDT COVID-19 Under Investigation 09/18/2020 09/18/2020 09/18/2020 8:02 PM CDT COVID-19 Under Investigation 11/11/2021 11/11/2021 11/11/2021 11:20 PM COOK JELLY documented as of this encounter Care Teams Skein Dyer Relationship Specialty Start Date End Date Marquez Wu MD [address] [place] [address] PCP - General 07/18/20 09/23/20 Marty Harris MD [address] [facility] 2L DIV OF [facility] [address] PCP - Attributed-[facility] EHP STL 05/23/20 05/11/23 Nandini Zaldivar MD [address] [place] [address] PCP - General 10/30/20 11/19/20 Nandini Zaldivar MD [address] [place] [address] PCP - General 02/06/21 02/20/21 Rosina Sutton MD [address] [facility] [address] [address] PCP - General Internal Medicine 02/25/21 09/16/23 Antoine Díaz MD [address] [facility] [place] [phone] PCP - General Internal Medicine 09/17/23 07/27/24 Rex Owens MD [address] [facility] [place] [phone] PCP - General Internal Medicine 08/03/24 08/09/25 Chanel De Leon MD [address] [facility] DIV OF [address] [phone] PCP - General Internal Medicine 08/10/25 Nandini Zaldivar MD [address] [place] [address] Primary Care Provider Student Resident 8/21/20 11/8/2 0 Nandini Zaldivar MD [address] INTERNAL MEDICINE [place] Resident - PCP Student Resident 02/25/21 05/19/23 Antoine Díaz MD [address] [place] [phone] Resident - PCP Internal Medicine 05/20/23 09/16/23 Gilmar Mckenna MD [address] [phone] Neurology 06/23/24 documented as of this encounter
--- OUTSIDE RECORDS SUMMARY | 2025-08-14 12:53 | XMS_ITS | Clinical Summary ---
Author Organization [facility] Address [address] [place] [address] Care Team Providers Care Marketing Intelligence Manager Name Role Phone Duke Delgado MD Primary Care Provider [phone] Allergies Active Allergy Reactions Criticality Noted Date Comments Adhesive Itching,Rash,Redness Medium 11/23/2009 Azithromycin Medications no.[id number] irvin 28 mg iron- 1 mg-200 mg capsule Take 1 tablet by mouth daily 30 capsule 4 9 Active butalbital-acet aminophen-caffe ine (ESGIC) 50-325-40 mg per tablet Take 1 tablet by mouth every 4 (four) hours as needed 3 Active cholecalciferol (VITAMIN D-3) 5,000 unit capsule Take 1 capsule (5,000 Units total) by mouth daily Active escitalopram (LEXAPRO) 20 mg tablet Take 1 tablet (20 mg total) by mouth daily Active loratadine 10 mg capsule 5 Active magnesium gluconate 200 mg tablet 7 Active cyclobenzaprine (FLEXERIL) 10 mg tablet TAKE 1/2 TO 1 TABLET BY MOUTH EVERY NIGHT NEEDED FOR MUSCLE SPASMS 4 Active clobetasoL (TEMOVATE) 0.05 % external solution as needed 4 Active EPINEPHrine 0.3 mg/0.3 mL auto-injection syringe Inject 0.3 mL (0.3 mg total) into the muscle as instructed daily as needed 4 Active Nurtec ODT tablet,disinteg rating DISSOLVE 1 TABLET ON THE TONGUE DAILY NEEDED FOR MIGRAINE 5 Active Estarylla 0.25-35 mg-mcg per tablet Take 1 tablet by mouth daily Active metFORMIN XR (GLUCOPHAGE XR) 500 mg 24 hr tablet Take 1 tablet (500 mg total) by mouth 2 (two) times a day 4 Active Emgality Pen 120 mg/mL pen injector ADMINISTER 1 ML UNDER THE SKIN EVERY 30 DAYS Active mupirocin (BACTROBAN) 2 % ointmentIndicat ions:Finger infection Apply topically 3 (three) times a day 22 g 5 Active Active Problems Problem Noted Date Diagnosed Date Hot flashes 08/03/2024 Syrinx 05/14/2021 Tremors of nervous system 05/14/2021 Chronic migraine without aur a without status migrainosus, not intractable 10/29/2020 Congenital dysplasia of right hip 10/17/2020 Irregular menstrual cycle 10/13/2016 Prediabetes 04/14/2016 Overview (08/03/2023): Overview: HbA1C 6.1%-04/07 ; being followed by automatic casting machine operator at [facility] Has been on metformin yrs ago and felt nauseated. Refer endocrine so can see dietary Pain in female pelvis 04/01/2016 Small fiber neuropathy 03/27/2016 Hirsutism 12/07/2015 Numbness 09/20/2015 Pain 09/20/2015 Polycystic ovaries 08/27/2015 Spina bifida 05/03/2015 Overview (08/03/2023): No surgeries, abnormal vertebra, skin covered ANNIE (generalized anxiety disorder) 05/11/2012 Overview (08/03/2023): Lexapro 20 mg daily Encounters Date Type Department Care Team Description 06/01/2025 4:15 PM CDT Office Visit [facility] at [address] [address] Romelia Carrillo, OSMEL Finger infection (Primary Dx) 06/01/2025 Telephone [facility] Medical [facility] at [address] [address] Rebecca Fontanez NP 05/25/2025 3:30 PM CDT Office Visit [facility] at [address] [phone] Rebecca Fontanez, OSMEL Insect bite of right index finger with infection (Primary Dx) from Last 3 Months Immunizations Immunization Administration Dates Next Due Influenza, Trivalent, Preservative Free, Intramu scular 11/09/2024 Tdap 08/04/2022,12/25/2018 Surgical History Surgery Date Site/Laterality Comments LEG SURGERY Leg Repair - (Added by Conv) MS COLONOSCOPY FLX DX W/CHANG J SPEC WHEN PFRMD Colonoscopy - (Added by Conv) MS UNLISTED PROCEDURE DENTOALVEOLAR STRUCTURES Oral Surgery Tooth Extraction - (Added by TW Conv) MS TONSILLECTOMY PRIMARY/SECONDARY <AGE 12 Tonsillectomy - (Added by TW Conv) FLUORO GUIDED ASPIRATION OR INJECTION LARGE JOINT LEFT 01/18/2024 Left Medical History Medical History Date Comments Personal history of other di seases of the nervous system and sense organs History of sleep apnea - (Added by TW Conv) Personal history of other di seases of the musculoskeletal system and connective tissue History of fibromyalgia - (A dded by TW Conv) Anxiety Depression Obesity Migraines Dysplasia of hip PCOS (polycystic ovarian syndrome) Family History Medical History Relation Name Comments Diabetes Father Family history of borderline diabetes mellitus - (Added by TW Conv) Hypertension Father Family history of hypertension - (Added by TW Conv) Kidney cancer Mother's Brother Family his tory of kidney cancer - (Added by TW Conv) Diabetes Mother's Sister Family histo ry of diabetes mellitus - (Added by TW Conv) Prostate cancer Paternal Grandfather Fami ly history of prostate cancer - (Added by TW Conv) Relation Name Status Comments Father Mother's Brother Mother's Sister Paternal Grandfather Social History Tobacco Use Types Packs/Day Years Used Date Smoking Tobacco: Never Smokeless Tobacco: Never Tobacco Cessation:Counseling Given: Not Answered Comments Unknown Sex and Gender Information Value Date Recorded Sex Assigned at Not on file Legal Sex Female 9:55 PM COUNSELING PSYCHOLOGIST Gender Identity Not on file Sexual Orientation Not on file Obstetrics History Para Term AB IAB SAB Ectopic Multiple Livin g Live Births 2 2 2 2 2 Date Outcome GA Total Labor Labor/2nd/3rd Weight Sex Type Anes PTL Kerry A1 A5 Name Clin 2018 Term 40w 1d 0h 01m 0h 01m 3.4 kg (7 lb 7.9 oz) M CS-LT ranv Spinal N Livin g 9 9 CHEN,B PAULA BOY CHELSE A Muna min MD Complications:None Delivery Location:[facility] Comments:Elective Prim gena C/S 2021 Term 38w 3d 0h 04m 0h 04m 2.84 kg (6 lb 4.2 oz) M CS-LT ranv Spinal N Livin g 9 9 CHEN,B PAULA BOY GILBERT A Lora elliott MD Complications:None Delivery Location:[facility] ([facility]) Last Filed Vital Signs Vital Sign Reading Time Taken Comments Blood Pressure 121/81 06/01/2025 4:06 PM CDT Pulse 70 06/01/2025 4:06 PM CDT Temperature 36.9 C (98.5 F) 06/01/2025 4:06 PM CDT Respiratory Rate 20 06/01/2025 4:06 PM CDT Oxygen Saturation 98% 06/01/2025 4:06 PM CDT Inhaled Oxygen Concentration - - Weight 99.3 kg (219 lb) 06/01/2025 4:06 PM CDT Height 161.3 cm (5' 3.5) 12/05/2024 3:55 PM COUNSELING PSYCHOLOGIST Body Mass Index 38.19 12/05/2024 3:55 PM COUNSELING PSYCHOLOGIST Plan of Treatment Health Maintenance Due Date Last Done Comments Cervical Cancer Screening 1990 Depression Screening 1990 Hepatitis C Screening 1990 Varicella Vaccines (1 of 2 - 13+ 2-dose series) 2003 Hepatitis B Screening 2008 Regular Well Visit/Exam 18-64 2008 HPV Vaccines (1 - 3-dose SCDM series) 2017 Covid-19 Vaccine ( season) 2025 10/07/2022, 09/26/2021, 03/10/2021, Additional history exists Influenza Vaccine (#1) 2025 11/09/2024 DTaP/Tdap/Td Vaccine (3 - Td or Tdap) 08/04/2032 08/04/2022, 12/25/2018 Pneumococcal vaccine <65 Aged Out No longer eligible based on patient's age to complete this topic Insurance [facility] Address: [place] [address] [facility] Address: [place] [address] Care Teams Marketing Intelligence Manager Relationship Specialty Start Date End Date Duke Delgado MD PCP - General Internal Medicine 12/05/24
--- OUTSIDE RECORDS SUMMARY | 2025-08-14 12:53 | XMS_ITS | Encounter Summary ---
Author Organization [facility] Health Address [address] [place] [address] Care Team Providers Care Wellness Coordinator Name Role Phone Gilmar Mckenna MD Unavailable Rex Owens MD Primary Care Provider [phone] Chanel De Leon MD Primary Care Provider [phone] Encounter Details Date Type Department Care Team (Late st Contact Info) Description 05/22/2025 Telephone [facility] [address] [facility] [address] [place] [address] Maya Valladares MD [address] [facility] [address] [place] [address] Social History Tobacco Use Types Packs/Day Years Used Date Smoking Tobacco: Never Smokeless Tobacco: Never Alcohol Use Standard Drinks/Week Comments Not Currently 3 (1 standard drink = 0.6 oz pur e alcohol) monthly 3-4 drinks Overall Financial Resource Strain (CARDIA) Answe r Date Recorded How hard is it for you to pa y for the very basics like food, housing, medical care, and heating? Not hard at all 10/21/2022 PHQ-2 Answer Date Recorded Patient Health Questionnaire-2 Score 1 05/16/2025 Hunger Vital Sign Answer Date Recorded Within [...] place to sleep or slept in a usp (including now)? No 10/21/2022 [place] Depression Scale Answer Date Recorded RETIRED: Total Score 2 10/24/2022 Last EPDS Self Harm Result Not on file 10/24 Education Answer Date Recorded What is the highest level of school you have completed or the highest degree you have received? 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 Answer Date of Assessment Author No 10/21/2022 6:00 PM Amrita Caldwell RN * Is person blind or have serious difficulty seeing? Answer Date of Assessment Author No 10/21/2022 6:00 PM ADVERTISING ACCOUNT EXECUTIVE Correa, S arah D, RN * Does person have serious difficulty walking/climbing stairs? Answer Date of Assessment Author No 10/21/2022 6:00 PM Amrita Caldwell RN * Does person have difficulty dressing/bathing? Answer Date of Assessment Author No 10/21/2022 6:00 PM Amrita Caldwell RN * Does person have difficulty doing errands alone? Answer Date of Assessment Author No 10/21/2022 6:00 PM Amrita Caldwell RN documented as of this encounter Mental Status * Does person have difficulty concentrating/remembering/making decisions? Answer Entry Date Author No 10/21/2022 6:00 PM Amrita Caldwell RN documented in this encounter Plan of Treatment Upcoming Encounters Date Type Department Care Team (Late st Contact Info) Description 08/21/2025 3:00 PM CDT Office Visit [facility] Weight Management Services [address] [place] [address] Phi Salas MD [address] [place] [address] 08/24/2025 10:00 AM CDT Procedure visit [facility] Health Neurosciences [address] [address] Gilmar Mckenna MD [address] [phone] 08/24/2025 2:40 PM CDT Office Visit [facility] - Dermatology [address] [facility], [place] [address] Joycelyn Fenton MD [address] [place] [address] 09/19/2025 9:00 AM CDT Office Visit [facility] Health Weight Management Services [address] [place] [address] 09/19/2025 10:45 AM CDT Clinical Support [facility] Weight Management Services [address] [place] [address], [facility] [address] [place] [address] 11/02/2025 2:15 PM ADVERTISING ACCOUNT EXECUTIVE Office Visit [facility] - Internal Med [address] [facility], [place] [phone] Chanel De Leon MD [address] [facility] DIV OF INT MED [address] [place] [phone] 11/21/2025 11:00 AM ADVERTISING ACCOUNT EXECUTIVE Procedure visit [facility] Health Neurosciences [address] [place] [address] Gilmar Mckenna MD [address] [place] [address] 11/29/2025 3:00 PM ADVERTISING ACCOUNT EXECUTIVE Office Visit [facility] Physician Group - Sleep Services [address] [facility] [address] [place] [phone] Komal Rich, APNP-CONICAL MIXER [address] [facility] [address] [place] [phone] documented as of this encounter Visit Diagnoses Not on filedocumented in this encounter Care Teams Wellness Coordinator Relationship Specialty Start Date End Date Rex Owens MD [address] [facility] [place] [place] [address] PCP - General Internal Medicine 08/03/24 08/09/25 Chanel De Leon MD [address] [facility] DIV OF INT MED [address] [place] [phone] PCP - General Internal Medicine 08/10/25 Gilmar Mckenna MD [address] [place] [address] Neurology 06/23/24 documented as of this encounter
--- OUTSIDE RECORDS SUMMARY | 2025-08-14 12:53 | XMS_ITS | Clinical Summary ---
Author Organization [facility] Address [address] [place] [address] Care Team Providers Care Occupational Therapy Aide Name Role Phone Unavailable Primary Care Provider Unavailabl e Social History Tobacco Use Types Packs/Day Years Used Date Smoking Tobacco: Never Assessed Comments Unknown Sex and Gender Information Value Date Recorded Sex Assigned at Not on file Legal Sex Female 7:19 PM CDT Gender Identity Not on file Sexual Orientation Not on file Plan of Treatment Health Maintenance Due Date Last Done Comments Cervical Cancer Screening Pa p Smear (Age 30 to 64) Every 3 Years 1990 Annual Physical 1993 Hepatitis C 2008 DTaP, Tdap and Td Vaccines ( 1 - Tdap) 2009 Hepatitis B Vaccines (1 of 3 - 19+ 3-dose series) 2009 HPV Vaccines (1 - 3-dose SCD M series) 2017 Cervical Cancer Screening Pa p with HPV Testing (Age 30 to 64) Every 5 Years 2020 Cervical Cancer Screening with HPV 2020 COVID-19 Vaccine ( - 2023-2 5 season) 2025 Meningococcal B Vaccine Aged Out No l onger eligible based on patient's age to complete this topic Meningococcal Vaccine Aged Out No catalina silva eligible based on patient's age to complete this topic Pneumococcal Vaccine: Pediat rics (0 to 5 Years) and At-Risk Patients (6 to 49 Years) Aged Out No longer eligible b ased on patient's age to complete this topic RSV Immunizations Under 20 Months Aged Out No longer eligible based on patient's age to complete this topic
--- OUTSIDE RECORDS SUMMARY | 2025-08-14 12:53 | XMS_ITS | Encounter Summary ---
Author Organization [facility] Health Address [address] [place] [address] Care Team Providers Care Assembler Final Name Role Phone Gilmar Mckenna MD Unavailable Rex Owens MD Primary Care Provider [phone] Chanel De Leon MD Primary Care Provider [phone] Reason for Visit * Reason Onset Date Comments MEDICATION REFILL 09/24/2024 Encounter Details Date Type Department Care Team (Late st Contact Info) Description 09/24/2024 Refill [facility] Health Neurosciences [address] [facility] [address] [place] [address] Gilmar Mckenna MD [address] [place] [address] MEDICATION REFILL Social History Tobacco Use Types Packs/Day Years Used Date Smoking Tobacco: Never Smokeless Tobacco: Never Alcohol Use Standard Drinks/Week Comments Not Currently 0 (1 standard drink = 0.6 oz pur e alcohol) Overall Financial Resource Strain (CARDIA) Answe r Date Recorded How hard is it for you to pa y for the very basics like food, housing, medical care, and heating? Not hard at all 10/21/2022 PHQ-2 Answer Date Recorded Patient Health Questionnaire-2 Score 1 08/08/2024 Hunger Vital Sign Answer Date Recorded Within [...] place to sleep or slept in a group home (including now)? No 10/21/2022 [place] Depression Scale Answer Date Recorded RETIRED: Total Score 2 10/24/2022 Last EPDS Self Harm Result Not on file 10/24 Education Answer Date Recorded What is the highest level of school you have completed or the highest degree you have received? 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 Answer Date of Assessment Author No 10/21/2022 6:00 PM Amrita Caldwell RN * Is person blind or have serious difficulty seeing? Answer Date of Assessment Author No 10/21/2022 6:00 PM Amrita Caldwell RN * Does person have serious difficulty [...] Description 08/21/2025 3:00 PM CDT Office Visit [facility] [address] [place] [address] Phi Salas MD [address] [place] [address] 08/24/2025 10:00 AM CDT Procedure visit [facility] Health Neurosciences [address] [address] Gilmar Mckenna MD [address] [phone] 08/24/2025 2:40 PM CDT Office Visit [facility] - Dermatology [address] [place] [address], [facility] [place] [address] Joycelyn Fenton MD [address] [place] [address] 09/19/2025 9:00 AM CDT Office Visit [facility] Health Weight Management Services [address] [place] [address] 09/19/2025 10:45 AM CDT Clinical Support [facility] [address] [place] [address] 11/02/2025 2:15 PM CUSTOMER SERVICE CONSULTANT Office Visit [facility] - Internal Med [address] [facility], [place] [address] Chanel De Leon MD [address] [facility] INT MED [address] [place] [phone] 11/21/2025 11:00 AM CUSTOMER SERVICE CONSULTANT Procedure visit [facility] Health Neurosciences [address] [place] [address] Gilmar Mckenna MD [address] [place] [address] 11/29/2025 3:00 PM CUSTOMER SERVICE CONSULTANT Office Visit [facility] - Sleep Services [address] [facility] [address] [place] [phone] Komal Rich, APNP-HARBOUR MASTER [address] [facility] [address] [place] [address] documented as of this encounter Visit Diagnoses Diagnosis Chronic migraine without aura without status migrainosus, not intractable Chronic migraine without aura, without mention of intractable migraine without mention of status migrainosus documented in this encounter Care Teams Assembler Final Relationship Specialty Start Date End Date Rex Owens MD [address] [facility] [place] [phone] PCP - General Internal Medicine 08/03/24 08/09/25 Chanel De Leon MD [address] [facility] [address] [place] [phone] PCP - General Internal Medicine 08/10/25 Gilmar Mckenna MD [address] [place] [address] Neurology 06/23/24 documented as of this encounter
--- OUTSIDE RECORDS SUMMARY | 2025-08-14 12:53 | XMS_ITS | Encounter Summary ---
Author Organization [facility] Address [address] [place] [address] Care Team Providers Care Gaming Department Head Name Role Phone Laura Del Angel MD Primary Care Provider [phone] Augusto Garcias MD Primary Care Provider [phone] Nandini Zaldivar MD Unavailable [phone] Marquez Wu MD Primary Care Provider [phone] Marty Harris MD Unavailable Nandini Zaldivar MD Primary Care Provider Nandini Zaldivar MD Primary Care Provider Rosina Sutton MD Primary Care Provider [phone] Nandini Zaldivar MD Unavailable [phone] Antoine Díaz MD Unavailable [phone] Antoine Díaz MD Primary Care Provider [phone] Gilmar Mckenna MD Unavailable Rex Owens MD Primary Care Provider Chanel De Leon MD Primary Care Provider [phone] Encounter Details Date Type Department Care Team (Late st Contact Info) Description 12/19/2015 Lab Requisition [facility] [facility] [address] [place] [address] Unknown, Provider Social History Tobacco Use Types Packs/Day Years Used Date Smoking Tobacco: Never Assessed Comments Unknown Sex and Gender Information Value Date Recorded Sex Assigned at Female 10/28/2020 10:11 PM PHARMACY CLERK Legal Sex Female 1:47 PM PHARMACY CLERK Gender Identity Female 10/28/2020 10:11 PM PHARMACY CLERK Sexual Orientation Straight 10/28/2020 10 :11 PM PHARMACY CLERK documented as of this encounter Plan of Treatment Upcoming Encounters Date Type Department Care Team ([facility] Contact Info) Description 08/21/2025 3:00 PM CDT Office Visit [facility] Health Weight Management Services [address] [place] [address], [address] [address] Phi Salas MD [address] [place] [address] [address] [place] [address] 08/24/2025 10:00 AM CDT Procedure visit [facility] Health Neurosciences [facility] [address] Gilmar Mckenna MD [address] [place] [address] 200 [place] [phone] 08/24/2025 2:40 PM CDT Office Visit [facility] - Dermatology [address] [place] [phone] Joycelyn Fenton MD [facility] [place] [address] 09/19/2025 9:00 AM CDT Office Visit [facility] Health Weight Management Services [address] [place] [address] 09/19/2025 10:45 AM CDT Clinical Support [facility] Health Weight Management Services [address] [place] [address], [facility] [address] [place] [address] 11/02/2025 2:15 PM PHARMACY CLERK Office Visit [facility] - Internal Med [address] [place] [address] [place] [phone] Chanel De Leon MD [address] [facility] [address] [phone] 11/21/2025 11:00 AM PHARMACY CLERK Procedure visit [facility] Health Neurosciences [address] [place] [phone] Gilmar Mckenna MD [address] [place] [phone] 11/29/2025 3:00 PM PHARMACY CLERK Office Visit [facility] - Sleep Services [address] [facility] [address] [place] [phone] Komal Rich APNP-LAUNDRY ROOM ATTENDANT [address] [facility] [address] [place] [address] documented as of this encounter Procedures Procedure Name Priority Date/Time Associated Diagnosis Comments VARICELLA ZOSTER ANTIBODY IGG Routine 12/19/2015 11:00 AM PHARMACY CLERK documented in this encounter Results * VARICELLA ZOSTER ANTIBODY IGG (12/19/2015 11:00 AM PHARMACY CLERK) Varicella zoster Virus Antibody IgG 682 Immune >165 index 2015 11:18 AM PHARMACY CLERK [facility] ([facility] [facility]) Comment: Negative <135 Equivocal 135 - 165 Positive >165 A positive result generally indicates exposure to the pathogen or administration of specific immunoglobulins, but it is not indication of active infection or stage of disease. Blood specimen (specimen) BLOOD SPECIMEN / Unknown Venipuncture / Unknown 12/19/2015 11:00 AM PHARMACY CLERK 12/19/2015 7:25 PM PHARMACY CLERK Narrative [facility] ([facility]) - 2015 11:18 AM PHARMACY CLERK Performed at: [address] [place] [id number] Boom Supervisor: Robe Lai PhD, Phone: [phone] us Provider Unknown LAB - CHEMISTRY ORDERABLES Mandy l Result [facility]) [address] [place] [address] documented in this encounter Visit Diagnoses Not on filedocumented in this encounter Additional Health Concerns Infection Onset Date Last Indicated Resolved Time COVID-19 Under Investigation 02/20/2020 02/20/2020 02/20/2020 11:56 PM CDT COVID-19 Under Investigation 09/18/2020 09/18/2020 09/18/2020 8:02 PM CDT COVID-19 Under Investigation 11/11/2021 11/11/2021 11/11/2021 11:20 PM PHARMACY CLERK documented as of this encounter Care Teams Gaming Department Head Relationship Specialty Start Date End Date Laura Del Angel MD PCP - General Family Medicine 05/11/12 08/19/16 Augusto Garcias MD [address] [place] [address] PCP - General 12/03/19 12/20/19 Marquez Wu MD [address] [place] [address] PCP - General 07/18/20 09/23/20 Marty Harris MD [address] [facility] [address] [facility] [place] [address] PCP - Attributed-[facility] 05/23/20 05/11/23 Nandini Zaldivar MD [address] [place] [address] PCP - General 10/30/20 11/19/20 Nandini Zaldivar MD [address] [place] [address] PCP - General 02/06/21 02/20/21 Rosina Sutton MD [address] [facility] 2[address] [place] [address] PCP - General Internal Medicine 02/25/21 09/16/23 Antoine Díaz MD [address] [place] [phone] PCP - General Internal Medicine 09/17/23 07/27/24 Rex Owens MD [facility] [place] [phone] PCP - General Internal Medicine 08/03/24 08/09/25 Chanel De Leon MD [address] [phone] PCP - General Internal Medicine 08/10/25 Nandini Zaldivar MD [address] [place] [address] Primary Care Provider Student Resident 07/13/20 0 Nandini Zaldivar MD [address] [facility] [address] [place], [place] Resident - PCP Student Resident 02/25/21 05/19/23 Antoine Díaz MD [facility]1 [place] [phone] Resident - PCP Internal Medicine 05/20/23 09/16/23 Gilmar Mckenna MD [facility] [place] [address] Neurology 06/23/24 documented as of this encounter
--- NOTE | 2025-08-14 13:51 | ED_ITS ---
HPI - Female Genitourinary General Chief complaint: Urogenital-Female <NE Macias Last Filed: 08/14/25 14:22> Stated complaint: Blood in urine-UTI in June <NE Macias Last Filed: 08/14/25 14:22> Time Seen by Provider: 08/14/25 14:08 <NE Macias Last Filed: 08/14/25 14:22> Focused HPI: Patient is a 34 y/o female who presents to the ED with c/o urinary symptoms. Patient reports she had a UTI 1 month ago, treated with Macrobid. Began having sx's of UTI again last night, including urgency, dysuria. Took dose of Azo and thought sx's improved. Today, began having bladder spasms, hematuria with small clots, lower abdominal pain radiating to her R lower back. Prompted here for further evaluation. Reports chills, hot flashes, denies known fever. Denies hx of kidney stones. GENERAL: Well-appearing, obese with BMI of 39.4, and in no acute distress. HEAD: Normocephalic, atraumatic. CHEST: Clear to auscultation. ?No respiratory distress. HEART: Regular rate and rhythm.? ABD: Mild TTP in RLQ, R CVA region. Normoactive BS NEURO: ?Alert and oriented x3. Patient screened in triage and initial orders placed.? ?Additional care and disposition to be based upon?diagnostic testing and treatment. <Lian You PA-C - Last Filed: 08/14/25 14:22> Source: patient <NE Macias Last Filed: 08/14/25 14:22> Mode of arrival: ambulatory <NE Macias Last Filed: 08/14/25 14:22> Limitations: no limitations <NE Macias Last Filed: 08/14/25 14:22> History of Present Illness HPI Narrative: Patient 34-year-old female presents emergency department with chief complaint of urinary symptoms. Patient reports she was treated with Macrobid by tele doc patient reports that she did not have an actual urinalysis sent did not have urine culture sent patient reports no prior history of kidney stones reports that she has had some blood in her urine and has had some small clots patient reports that she has pain in her right flank area <Conrad Murdock MD - Last Filed: 08/14/25 16:10> Related Data Allergies/Adverse reactions: Allergies Allergy/AdvReac Type Severity Reaction Status Date / Time azithromycin Allergy Intermediate Hives Verified 08/14/25 15:16 <Lian You PA-C - Last Filed: 08/14/25 14:22> Review of Systems 2 Review of Systems: A 10 system review of systems was completed on the patient and is negative except for what is stated in the HPI. Nursing and ancillary documentation was reviewed. <Conrad Murdock MD - Last Filed: 08/14/25 16:10> PMFSH Past Medical History Medical History: Medical History Hip dysplasia <Lian You PA-C - Last Filed: 08/14/25 14:22> Surgical History Surgical History: Surgical History History of hip replacement <Lian You PA-C - Last Filed: 08/14/25 14:22> Social History Social History: Social History Smoking status: Never smoker <Lian You PA-C - Last Filed: 08/14/25 14:22> Exam 2 Narrative: GENERAL: Well-appearing, well-nourished, and in no acute distress. HEAD: Normocephalic, atraumatic. EYES: PERRLA and EOMI. ENT: Nares clear, no rhinorrhea or epistaxis. Mucous membranes moist. NECK: Supple. CHEST: Clear to auscultation. No respiratory distress. HEART: Regular rate and rhythm. No murmur heard. Normal peripheral pulses. ABDOMEN: Soft, nontender, nondistended, normal active bowel sounds. Back: Mild right CVA tenderness EXTREMITIES: Normal range of motion. No edema. SKIN: Warm, dry, no rash. NEURO: No focal deficits. Alert and oriented x3. PSYCH: Normal mood and affect. <Conrad Murdock MD - Last Filed: 08/14/25 16:10> Course Vital Signs Vital signs: Vital Signs Temperature 36.6 C 08/14/25 12:24 Pulse Rate 78 08/14/25 12:24 Respiratory Rate 20 08/14/25 12:24 Blood Pressure 150/96 H 08/14/25 12:24 Pulse Oximetry 97 08/14/25 12:24 Oxygen Delivery Room Air 08/14/25 12:24 Temperature 36.6 C 08/14/25 12:24 Pulse Rate 79 08/14/25 15:14 Respiratory Rate 20 08/14/25 15:14 Blood Pressure 131/80 08/14/25 15:14 Pulse Oximetry 96 08/14/25 15:14 Oxygen Delivery Room Air 08/14/25 15:14 <Lian You PA-C - Last Filed: 08/14/25 14:22> Vital Signs Temperature 36.6 C 08/14/25 12:24 Pulse Rate 78 08/14/25 12:24 Respiratory Rate 20 08/14/25 12:24 Blood Pressure 150/96 H 08/14/25 12:24 Pulse Oximetry 97 08/14/25 12:24 Oxygen Delivery Room Air 08/14/25 12:24 Temperature 36.6 C 08/14/25 12:24 Pulse Rate 79 08/14/25 15:14 Respiratory Rate 20 08/14/25 15:14 Blood Pressure 131/80 08/14/25 15:14 Pulse Oximetry 96 08/14/25 15:14 Oxygen Delivery Room Air 08/14/25 15:14 <Conrad Murdock MD - Last Filed: 08/14/25 16:10> MDM - Female Genitourinary MDM Narrative Medical decision making narrative: MSE by JULIA in triage. <Lian You PA-C - Last Filed: 08/14/25 14:22> MSE by JULIA in triage. Differential diagnosis includes ureterolithiasis, pyelonephritis, UTI, Laboratory studies were obtained on the patient showed a white count of 12.4 electrolytes showed a BUN of 6 and a creatinine of 0.56 urinalysis showed cloudy urine 3+ blood positive nitrate positive leukocyte esterase 50-[address] scan of the abdomen pelvis showed no evidence of obstructing stone Patient given a dose Rocephin in the emergency department be referred to Urology and will be started on Keflex <Conrad Murdock MD - Last Filed: 08/14/25 16:10> Lab Data Result diagrams: 08/14/25 14:27 08/14/25 14:27 <Lian You PA-C - Last Filed: 08/14/25 14:22> Labs: Lab Results 08/14/25 08/14/25 08/14/25 Range/Units 14:23 14:27 14:28 WBC 12.4 H (4.5-10.0) K/mm3 RBC 4.53 (4.2-5.4) M/mm3 Hgb 13.7 (12.0-15.0) g/dL Hct 41.9 (37.0-47.0) % MCV 92.5 (80-100) fl MCH 30.2 (26-34) pg MCHC 32.7 (32-36) g/dl RDW 12.8 (11.5-14.5) % Plt Count 264 (150-375) k/mm3 MPV 9.3 (7.4-10.4) fl Immature Gran % (Auto) 0.4 (0-0.5) % Neut % (Auto) 73.3 H (45.5-73.1) % Lymph % (Auto) 19.1 (18.3-44.2) % [place] % (Auto) 5.7 (2.6-8.5) % Eos % (Auto) 1.1 (0-4.4) % Baso % (Auto) 0.4 (0.2-1.2) % Lymph # (Auto) 2.36 (0.9-3.2) K/mm3 [place] # (Auto) 0.7 H (0.1-0.6) K/mm3 Eos # (Auto) 0.1 (0-0.3) K/mm3 Baso # (Auto) 0.1 (0.0-0.1) K/mm3 Abs Immat Gran (auto) 0.05 H (0.00-0.031) K/mm3 Absolute Neuts (auto) 9.0 H (1.3-6.7) K/mm3 Absolute Nucleated RBC 0.000 (0.0-0.012) K/mm3 Nucleated RBC % 0.0 (0.0-0.2) % Sodium 137 (137-145) mmol/L Potassium 4.0 (3.4-5.0) mmol/L Chloride 103 (98-107) mmol/L Carbon Dioxide 25 (22-30) mmol/L Anion Gap 9 (4-12) mmol/L BUN 6 L (7-17) mg/dL Creatinine 0.56 L (0.7-1.0) mg/dL Estim Creat Clear Calc 135 ml/min Estimated GFR > 60 (59 - ) Glucose 99 (65-110) mg/dL Calcium 9.2 (8.4-10.2) mg/dL Total Bilirubin 0.4 (0.2-1.3) mg/dL AST 22 (14-36) U/L ALT 19 (6-35) U/L Alkaline Phosphatase 77 (38-126) U/L Total Protein 7.6 (6.3-8.2) g/dL Albumin 4.3 (3.5-5.1) g/dL Urine Color Dark yellow (Yellow) Urine Appearance Cloudy H (Clear) Urine pH 6.5 (5.0-9.0) Ur Specific [place] 1.002 (1.001-1.035) Urine Protein Negative (Negative) mg/dL Urine Glucose (UA) Negative (Negative) mg/dL Urine Ketones Negative (Negative) mg/dL Ur Blood (Man) 3+ H (Negative) Urine Nitrate Positive H (Negative) Urine Bilirubin Negative (Negative) Urine Urobilinogen 1.0 (<2.0) mg/dL Add Ur Microanalysis Reviewed Leukocyte Esterase Rfl 3+ H (Negative) MOISÉS/UL Urine RBC 0-2 (0-2) /hpf Urine WBC 51-100 H (0-3) /hpf Ur Squamous Epith Cells None seen (Few) /hpf Urine Bacteria None seen /hpf Urine Casts 0-2 POC Urine HCG, Qual Negative (Negative) <Lian You PA-C - Last Filed: 08/14/25 14:22> Lab Results 08/14/25 08/14/25 08/14/25 Range/Units 14:23 14:27 14:28 WBC 12.4 H (4.5-10.0) K/mm3 RBC 4.53 (4.2-5.4) M/mm3 Hgb 13.7 (12.0-15.0) g/dL Hct 41.9 (37.0-47.0) % MCV 92.5 (80-100) fl MCH 30.2 (26-34) pg MCHC 32.7 (32-36) g/dl RDW 12.8 (11.5-14.5) % Plt Count 264 (150-375) k/mm3 MPV 9.3 (7.4-10.4) fl Immature Gran % (Auto) 0.4 (0-0.5) % Neut % (Auto) 73.3 H (45.5-73.1) % Lymph % (Auto) 19.1 (18.3-44.2) % [place] % (Auto) 5.7 (2.6-8.5) % Eos % (Auto) 1.1 (0-4.4) % Baso % (Auto) 0.4 (0.2-1.2) % Lymph # (Auto) 2.36 (0.9-3.2) K/mm3 [place] # (Auto) 0.7 H (0.1-0.6) K/mm3 Eos # (Auto) 0.1 (0-0.3) K/mm3 Baso # (Auto) 0.1 (0.0-0.1) K/mm3 Abs Immat Gran (auto) 0.05 H (0.00-0.031) K/mm3 Absolute Neuts (auto) 9.0 H (1.3-6.7) K/mm3 Absolute Nucleated RBC 0.000 (0.0-0.012) K/mm3 Nucleated RBC % 0.0 (0.0-0.2) % Sodium 137 (137-145) mmol/L Potassium 4.0 (3.4-5.0) mmol/L Chloride 103 (98-107) mmol/L Carbon Dioxide 25 (22-30) mmol/L Anion Gap 9 (4-12) mmol/L BUN 6 L (7-17) mg/dL Creatinine 0.56 L (0.7-1.0) mg/dL Estim Creat Clear Calc 135 ml/min Estimated GFR > 60 (59 - ) Glucose 99 (65-110) mg/dL Calcium 9.2 (8.4-10.2) mg/dL Total Bilirubin 0.4 (0.2-1.3) mg/dL AST 22 (14-36) U/L ALT 19 (6-35) U/L Alkaline Phosphatase 77 (38-126) U/L Total Protein 7.6 (6.3-8.2) g/dL Albumin 4.3 (3.5-5.1) g/dL Urine Color Dark yellow (Yellow) Urine Appearance Cloudy H (Clear) Urine pH 6.5 (5.0-9.0) Ur Specific [place] 1.002 (1.001-1.035) Urine Protein Negative (Negative) mg/dL Urine Glucose (UA) Negative (Negative) mg/dL Urine Ketones Negative (Negative) mg/dL Ur Blood (Man) 3+ H (Negative) Urine Nitrate Positive H (Negative) Urine Bilirubin Negative (Negative) Urine Urobilinogen 1.0 (<2.0) mg/dL Add Ur Microanalysis Reviewed Leukocyte Esterase Rfl 3+ H (Negative) MOISÉS/UL Urine RBC 0-2 (0-2) /hpf Urine WBC 51-100 H (0-3) /hpf Ur Squamous Epith Cells None seen (Few) /hpf Urine Bacteria None seen /hpf Urine Casts 0-2 POC Urine HCG, Qual Negative (Negative) <Conrad Murdock MD - Last Filed: 08/14/25 16:10> Discharge Plan Discharge Clinical Impression: Urinary tract infection, Hematuria <Lian You PA-C - Last Filed: 08/14/25 14:22> Patient Disposition: Home <Lian You PA-C - Last Filed: 08/14/25 14:22> Condition: Stable <Lian You PA-C - Last Filed: 08/14/25 14:22> Instructions: Antibiotic Form, Hematuria (ED) <NE Macias Last Filed: 08/14/25 14:22> Patient Language: Latvian <Lian You PA-C - Last Filed: 08/14/25 14:22> Prescriptions: New cephalexin 500 mg capsule 500 mg PO Q12H 7 Days Qty: 14 0RF <Lian You PA-C - Last Filed: 08/14/25 14:22> Follow-up/Referrals: Refugio Swenson MD [Physician, Urology] PHYSICIAN NOT ON STAFF,NONSTAFF [Primary Care Provider] <Lian You PA-C - Last Filed: 08/14/25 14:22> Time of Disposition: 16:10 <Lian You PA-C - Last Filed: 08/14/25 14:22> 16:10 <Conrad Murdock MD - Last Filed: 08/14/25 16:10>
[2025-08-14 14:32] LABS: BEDSIDEPREGUCG Negative (Negative)
[2025-08-14 14:49] LABS: Hematocrit 41.9 % (37.0-47.0); Hemoglobin 13.7 g/dL (12.0-15.0); Immature Granulocyte Percent A 0.4 % (0-0.5); Lymphocytes Absolute Auto 2.36 K/mm3 (0.9-3.2); Mean Corpuscular HGB Conc 32.7 g/dl (32-36); Mean Corpuscular Hemoglobin 30.2 pg (26-34); Mean Corpuscular Volume 92.5 fl (80-100); Nucleated Red Blood Cells Absolute Auto 0.000 K/mm3 (0.0-0.012); Nucleated Red Blood Cells Perc 0.0 % (0.0-0.2); Platelet Count Result 264 k/mm3 (150-375); Red Blood Count 4.53 M/mm3 (4.2-5.4); White Blood Count 12.4 K/mm3 (4.5-10.0)
[2025-08-14 14:56] LABS: Alanine Aminotransferase 19 U/L (6-35); Albumin Level 4.3 g/dL (3.5-5.1); Alkaline Phosphatase 77 U/L (38-126); Anion Gap 9 mmol/L (4-12); Aspartate Amino Transferase 22 U/L (14-36); Bilirubin,Total 0.4 mg/dL (0.2-1.3); Blood Urea Nitrogen 6 mg/dL (7-17); Calcium 9.2 mg/dL (8.4-10.2); Carbon Dioxide 25 mmol/L (22-30); Chloride 103 mmol/L (98-107); Estimated CRCL calculation 135 ml/min; Estimated Glomerular Filt Rate > 60; Glucose 99 mg/dL (65-110); Potassium 4.0 mmol/L (3.4-5.0); Sodium 137 mmol/L (137-145); Total Protein 7.6 g/dL (6.3-8.2)
[2025-08-14 15:00] LABS: Add Urine Microscopic? YES; Appearance Urine Cloudy (Clear); Glucose Urine UA Negative (Negative); Leukocyte Esterase Ur 3+ LEU/UL (Negative); Need Manual Microscopic Reviewed; Nitrate Urine Positive (Negative); Non Pathogenic Casts 0-2; Specific Grav Ur 1.002 (1.001-1.035)
[2025-08-14 15:14] VITALS: BP 131/80; PULSE 79; RESP 20; O2SAT 96
--- OUTSIDE RECORDS SUMMARY | 2025-08-14 16:21 | XMS_ITS | Encounter Summary ---
Author Organization [facility] Address [address] [facility] [place] [address] Care Team Providers Care Transfer And Line Up Worker Name Role Phone Marty Harris MD Unavailable [phone] Rosina Sutton MD Primary Care Provider [phone] Nandini Zaldivar MD Unavailable [phone] Antoine Díaz MD Unavailable [phone] Antoine Díaz MD Primary Care Provider Gilmar Mckenna MD Unavailable Rex Owens MD Primary Care Provider Chanel De Leon MD Primary Care Provider Reason for Visit * Reason Onset Date Comments Concerns 07/22/2022 Concerns during Encounter Details Date Type Department Care Team (Late st Contact Info) Description 07/22/2022 Telephone [facility] [address] [place] [address] Lora Colon MD [address] [facility] [address] [place] [address] Concerns (Concerns during ) Social [...] place to sleep or slept in a assisted (including now)? No 07/22/2022 Comments Yes Sex and Gender Information Value Date Recorded Sex Assigned at Female 10/28/2020 10:11 PM SENIOR IT SPECIALIST Legal Sex Female 1:47 PM SENIOR IT SPECIALIST Gender Identity Female 10/28/2020 10:11 PM SENIOR IT SPECIALIST Sexual Orientation Straight 10/28/2020 10 :11 PM SENIOR IT SPECIALIST Occupation Industry Job Start Date Job End [...] feet yesterday and is very concerned. # [phone] documented in this encounter Plan of Treatment Upcoming Encounters Date Type Department Care Team (Late st Contact Info) Description 08/21/2025 3:00 PM CDT Office Visit [facility] Weight Management Services [address] [facility], [address] [place] [address] [place] [address] [facility] 210 [place] [address] 08/24/2025 10:00 AM CDT Procedure visit [address] 200 [place], [place] [phone] [place] [address] [place] [phone] 08/24/2025 2:40 PM CDT Office Visit [facility] Derm[facility] [address] [place] [address] [place] [address] Joycelyn Fenton MD [facility] [place] [address] 09/19/2025 9:00 AM CDT Office Visit [facility] Weight Management Services [address] [place] [address], [address] [address] 09/19/2025 10:45 AM CDT Clinical Support [facility] Weight Management Services [address] [place] [address], [facility] 210 [place] [address] 11/02/2025 2:15 PM SENIOR IT SPECIALIST Office Visit [facility] Med [address] [place] [phone] Chanel De Leon MD [address] [place] [address] [place] [phone] 11/21/2025 11:00 AM SENIOR IT SPECIALIST Procedure visit [facility] Neurosciences [address] [place] [address] Gilmar Mckenna MD [address] [place] [phone] 11/29/2025 3:00 PM SENIOR IT SPECIALIST Office Visit [facility] Sleep Services [address] [place] [address] Komal Rich, APNP-CAR ATTENDANT [address] [place] [address] documented as of this encounter Visit Diagnoses Not on filedocumented in this encounter Care Teams Transfer And Line Up Worker Relationship Specialty Start Date End Date Marty Harris MD [address] [facility] [address] 2[address] [place] [address] PCP - Attributed-WellFirst EHP STL 05/23/20 05/11/23 Rosina Sutton MD [address] 2[address] [place] [address] PCP - General Internal Medicine 02/25/21 09/16/23 Antoine Díaz MD [address] [facility] [place] [place] [phone] PCP - General Internal Medicine 09/17/23 07/27/24 Rex Owens MD [address] [facility] [place] [address] PCP - General Internal Medicine 08/03/24 08/09/25 Chanel De Leon MD [address] DIV OF INT MED [address] [place] [phone] PCP - General Internal Medicine 08/10/25 Nandini Zaldivar MD [address] INTERNAL MEDICINE [place] Resident - PCP Student Resident 02/25/21 05/19/23 Antoine Díaz MD [address]01 [place] [phone] Resident - PCP Internal Medicine 05/20/23 09/16/23 Gilmar Mckenna MD [address] [phone] Neurology 06/23/24 documented as of this encounter
--- OUTSIDE RECORDS SUMMARY | 2025-08-14 16:21 | XMS_ITS | Clinical Summary ---
Author Organization [facility] Address [address] [place] [address] Care Team Providers Care Quality Analyst Name Role Phone Duke Delgado MD Primary Care Provider [phone] Allergies Active Allergy Reactions Criticality Noted Date Comments Adhesive Itching,Rash,Redness Medium 11/23/2009 Azithromycin Medications no.[id number]-d irvin 28 mg iron- 1 mg-200 mg [...] Overview: HbA1C 6.1%-04/07 ; being followed by children's aide at [facility] Has been on metformin yrs ago [...] Description 06/01/2025 4:15 PM CDT Office Visit [facility] [address] [address] Romelia Carrillo, OSMEL Finger infection (Primary Dx) 06/01/2025 Telephone [facility] Medical [facility] at [address] [address] Rebecca Fontanez NP 05/25/2025 3:30 PM CDT Office Visit [facility] [address] [phone] Rebecca Fontanez, OSMEL Insect bite of right index finger with infection (Primary Dx) from Last 3 Months Immunizations Immunization Administration Dates Next Due Influenza, Trivalent, Preservative Free, Intramu scular 11/09/2024 Tdap 08/04/2022,12/25/2018 Surgical History Surgery Date Site/Laterality Comments LEG SURGERY Leg Repair - (Added by Conv) MA COLONOSCOPY FLX DX W/CHANG J SPEC WHEN PFRMD Colonoscopy - (Added by Conv) MA UNLISTED PROCEDURE DENTOALVEOLAR STRUCTURES Oral Surgery Tooth Extraction - (Added by TW Conv) MA TONSILLECTOMY PRIMARY/SECONDARY <AGE 12 Tonsillectomy - (Added [...] on file Legal Sex Female 9:55 PM CLUTCH SPECIALIST Gender Identity Not on file Sexual Orientation [...] min MD Complications:None Delivery Location:[facility] Comments:Elective Prim gena C/S 2021 Term 38w 3d 0h 04m 0h 04m 2.84 kg (6 lb 4.2 oz) M CS-LT ranv Spinal N Livin g 9 9 CHEN,B PAULA BOY GILBERT A Lora elliott MD Complications:None Delivery Location:[facility] ([facility]) Last Filed Vital Signs Vital Sign Reading [...] 161.3 cm (5' 3.5) 12/05/2024 3:55 PM CLUTCH SPECIALIST Body Mass Index 38.19 12/05/2024 3:55 PM CLUTCH SPECIALIST Plan of Treatment Health Maintenance Due Date [...] to complete this topic Insurance [facility] H[facility]/PPO Address: [place] [address] [employer] HMO/PPO Address: [place] [address] Care Teams Quality Analyst Relationship Specialty Start Date End Date Duke Delgado MD PCP - General Internal Medicine 12/05/24
--- OUTSIDE RECORDS SUMMARY | 2025-08-14 16:21 | XMS_ITS | Encounter Summary ---
Author Organization [facility] Address [address] [facility] [place] [address] Care Team Providers Care Hand Clerical Verifier Name Role Phone Nandini Zaldivar MD Unavailable [phone] Marquez Wu MD Primary Care Provider Marty Harris MD Unavailable Nandini Zaldivar MD Primary Care Provider Nandini Zaldivar MD Primary Care Provider Rosina Sutton MD Primary Care Provider [phone] Nandini Zaldivar MD Unavailable [phone] Antoine Díaz MD Unavailable [phone] Antoine Díaz MD Primary Care Provider Gilmar Mckenna MD Unavailable Rex Owens MD Primary Care Provider [phone] Chanel De Leon MD Primary Care Provider [phone] Reason for Visit * Reason Onset Date Comments Medication Issue 01/04/2020 Victoza Encounter Details Date Type Department Care Team (Late st Contact Info) Description 01/04/2020 Telephone [facility] General Internal Medicine [address] [place] [address] Marquez Wu MD [address] [place] [address] Medication Issue (Victoza) Social History Tobacco Use [...] 10/28/2020 10 :11 PM CUSTOMER SERVICE CONSULTANT documented as of this encounter Functional Status * Is person deaf or have serious hearing difficulty? Answer Date of Assessment Author No 12/24/2018 4:30 PM CUSTOMER SERVICE CONSULTANT Mandie Santoro i, RN * Is person blind or have serious difficulty seeing? Answer Date of Assessment Author No 12/24/2018 4:30 PM CUSTOMER SERVICE CONSULTANT Mandie Santoro i, RN * Does person have serious difficulty walking/climbing stairs? Answer Date of Assessment Author No 12/24/2018 4:30 PM CUSTOMER SERVICE CONSULTANT Mandie Santoro i, RN * Does person have difficulty dressing/bathing? Answer Date of Assessment Author No 12/24/2018 4:30 PM Mandie Nguyễn i, RN * Does person have difficulty doing errands alone? Answer Date of Assessment Author No 12/24/2018 4:30 PM CUSTOMER SERVICE CONSULTANT Mandie Santoro i, RN documented as of [...] day. Marquez Wu MD 01/04/2020 11:28 AM OMER SERVICE CONSULTANT * Telephone Encounter - Gregory Trevino - [...] try that instead. Provided call back number [phone] Message routed to provider for review and assistance OMER SERVICE CONSULTANT documented in this encounter Plan of Treatment Upcoming Encounters Date Type Department Care Team (Late st Contact Info) Description 08/21/2025 3:00 PM CDT Office Visit [facility] Weight Management Services [address] [place] [address], [facility] 210 [place] [address] [place] [id number] [place] [address] 08/24/2025 10:00 AM CDT Procedure visit [facility] Neurosciences [address] [facility] 200 [place] [address] Gilmar Mckenna MD [address] [facility] 200 [place] [phone] 08/24/2025 2:40 PM CDT Office Visit [facility] [address] [facility], [facility] [place] [phone] Joycelyn Fenton MD 1201 [place] [address] 09/19/2025 9:00 AM CDT Office Visit [facility] Weight Management Services [address] [facility], [facility] 210 [place] [address] 09/19/2025 10:45 AM CDT Clinical Support [facility] Weight Management Services [address] [facility] [place] [address] 11/02/2025 2:15 PM CUSTOMER SERVICE CONSULTANT Office Visit [facility]ician Group - Internal Med [address] [facility], [place] [phone] Chanel De Leon MD [address] [facility] OF INT MED [address] [place] [phone] 11/21/2025 11:00 AM CUSTOMER SERVICE CONSULTANT Procedure visit [facility] Neurosciences [address] [facility] [address] [place], [place] [phone] Gilmar Mckenna MD [address] [facility] [address] [place] [phone] 11/29/2025 3:00 PM CUSTOMER SERVICE CONSULTANT Office Visit [facility]ician Group - Sleep Services [address] [facility] [address] [place] [phone] Komal Rich, SOCO-SILK WEAVER [address] [facility] [address] [place] [phone] documented as of this encounter Visit Diagnoses Not on filedocumented in this encounter Additional Health Concerns Infection Onset Date Last Indicated Resolved Time COVID-19 Under Investigation 02/20/2020 02/20/2020 02/20/2020 11:56 PM CDT COVID-19 Under Investigation 09/18/2020 09/18/2020 09/18/2020 8:02 PM CDT COVID-19 Under Investigation 11/11/2021 11/11/2021 11/11/2021 11:20 PM CUSTOMER SERVICE CONSULTANT documented as of this encounter Care Teams Hand Clerical Verifier Relationship Specialty Start Date End Date Marquez Wu MD [address] [place] [address] PCP - General 07/18/20 09/23/20 Marty Harris MD [address] [facility] 2L DIV OF [facility] [place] [address] PCP - Attributed-WellFirst EHP STL 05/23/20 05/11/23 Nandini Zaldivar MD [address] [place] [address] PCP - General 10/30/20 11/19/20 Nandini Zaldivar MD [address] [place] [address] PCP - General 02/06/21 02/20/21 Rosina Sutton MD [address] [facility] 2[place] [address] PCP - General Internal Medicine 02/25/21 09/16/23 Antoine Díaz MD [address] [facility] [place] [phone] PCP - General Internal Medicine 09/17/23 07/27/24 Rex Owens MD [address] [facility] [place] [phone] PCP - General Internal Medicine 08/03/24 08/09/25 Chanel De Leon MD [address] [facility] DIV OF [address] [phone] PCP - General Internal Medicine 08/10/25 Nandini Zaldivar MD [address] [place] [address] Primary Care Provider Student Resident 8/21/20 11/8/2 0 Nandini Zaldivar MD [address] INTERNAL MEDICINE [place] Resident - PCP Student Resident 02/25/21 05/19/23 Antoine Díaz MD [address] [place] [phone] Resident - PCP Internal Medicine 05/20/23 09/16/23 Gilmar Mckenna MD [address] [phone] Neurology 06/23/24 documented as of this encounter
--- OUTSIDE RECORDS SUMMARY | 2025-08-14 16:21 | XMS_ITS | Encounter Summary ---
Author Organization [facility] Address [address] [facility] [place] [address] Care Team Providers Care Mechanical Cad Designer Name Role Phone Marty Harris MD Unavailable Rosina Sutton MD Primary Care Provider [phone] Nandini Zaldivar MD Unavailable [phone] Antoine Díaz MD Unavailable [phone] Antoine Díaz MD Primary Care Provider Gilmar Mckenna MD Unavailable Rex Owens MD Primary Care Provider Chanel De Leon MD Primary Care Provider Reason for Visit * Reason Onset Date Comments MEDICATION REFILL 04/30/2021 Encounter Details Date Type Department Care Team (Late st Contact Info) Description 04/30/2021 Refill [facility] Orthopedic Surgery [address]31 [place] [address] Wil Eid MD [address] [place] [phone] MEDICATION REFILL Social History Tobacco Use Types Packs/Day Years Used Date Smoking Tobacco: Never Smokeless Tobacco: Never Alcohol Use Standard Drinks/Week Comments Yes 1 (1 standard drink = 0.6 oz pur e alcohol) weekly Comments No Sex and Gender Information Value Date Recorded Sex Assigned at Female 10/28/2020 10:11 PM MUSICAL INSTRUMENT MAKER Legal Sex Female 1:47 PM MUSICAL INSTRUMENT MAKER Gender Identity Female 10/28/2020 10:11 PM MUSICAL INSTRUMENT MAKER Sexual Orientation Straight 10/28/2020 10 :11 PM MUSICAL INSTRUMENT MAKER Occupation Industry Job Start Date Job End [...] Description 08/21/2025 3:00 PM CDT Office Visit [facility] Weight Management Services [address] [facility], [address] [place] [address] [place] [address] [facility] [address] [place] [address] 08/24/2025 10:00 AM CDT Procedure visit [facility] Health Neurosciences [address] [facility] [address] [place] [address] Gilmar Mckenna MD [address] [facility] [address] 200 [place] [phone] 08/24/2025 2:40 PM CDT Office Visit [facility] Derm[facility] [address] [place] [address], [place] [address] Joycelyn Fenton MD 1201 [place] [address] 09/19/2025 9:00 AM CDT Office Visit [facility] Weight Management Services [address] [place] [address], [address] [place] [address] 09/19/2025 10:45 AM CDT Clinical Support [facility] Weight Management Services [address] [facility] [address] [place] [address] 11/02/2025 2:15 PM MUSICAL INSTRUMENT MAKER Office Visit [facility] - Internal Med [address] [place] [address], [place] [address] Chanel De Leon MD [facility] MED [address] [place] [phone] 11/21/2025 11:00 AM MUSICAL INSTRUMENT MAKER Procedure visit [facility] Health Neurosciences [address] [place] [address] 200 [place] [address] [place] [address] [place] [address] 200 [place] [phone] 11/29/2025 3:00 PM MUSICAL INSTRUMENT MAKER Office Visit [facility] Services [address] [facility] 550 [place] [address] Komal Rich, SOCO-SENIOR GL ACCOUNTANT [address] [facility] 550 [place] [address] documented as of this encounter Visit Diagnoses Diagnosis Surgical site infection- Primary documented in this encounter Additional Health Concerns Infection Onset Date Last Indicated Resolved Time COVID-19 Under Investigation 11/11/2021 11/11/2021 11/11/2021 11:20 PM MUSICAL INSTRUMENT MAKER documented as of this encounter Care Teams Mechanical Cad Designer Relationship Specialty Start Date End Date Marty Harris MD [address] DIV OF [facility] [place] [address] PCP - Attributed-WellFirst EHP STL 05/23/20 05/11/23 Rosina Sutton MD [address] DIV OF [facility] [place] [address] PCP - General Internal Medicine 02/25/21 09/16/23 Antoine Díaz MD [address] [facility] [place] [place] [phone] PCP - General Internal Medicine 09/17/23 07/27/24 Rex Owens MD [address] [facility] [place] [place] [phone] PCP - General Internal Medicine 08/03/24 08/09/25 Chanel De Leon MD [address] DIV OF [address] [phone] PCP - General Internal Medicine 08/10/25 Nandini Zaldivar MD [address] DIV OF [facility] INTERNAL [place] Resident - PCP Student Resident 02/25/21 05/19/23 Antoine Díaz MD [address] [facility] [place] [place] [address] Resident - PCP Internal Medicine 05/20/23 09/16/23 Gilmar Mckenna MD [address] [facility] 200 [place] [address] Neurology 06/23/24 documented as of this encounter
--- OUTSIDE RECORDS SUMMARY | 2025-08-14 16:21 | XMS_ITS | Encounter Summary ---
Author Organization [facility] Address [address] [place] [address] Care Team Providers Care Breast Splitter Name Role Phone Laura Del Angel MD Primary Care Provider [phone] Augusto Garcias MD Primary Care Provider [phone] Nandini Zaldivar MD Unavailable [phone] Marquez Wu MD Primary Care Provider [phone] Marty Harris MD Unavailable Nandini Zaldivar MD Primary Care Provider Nandini Zaldivar MD Primary Care Provider Rosina Sutton MD Primary Care Provider [phone] Nandini Zaldivar MD Unavailable Antoine Díaz MD Unavailable [phone] Antoine Díaz MD Primary Care Provider [phone] Gilmar Mckenna MD Unavailable Rex Owens MD Primary Care Provider Chanel De Leon MD Primary Care Provider Encounter Details Date Type Department Care Team (Late st Contact Info) Description 12/19/2015 Lab Requisition [facility] [address] [place] [address] Unknown, Provider Social History Tobacco Use Types Packs/Day Years Used Date Smoking Tobacco: Never Assessed Comments Unknown Sex and Gender Information Value Date Recorded Sex Assigned at Female 10/28/2020 10:11 PM PROFESSOR OF GRAPHIC DESIGN Legal Sex Female 1:47 PM PROFESSOR OF GRAPHIC DESIGN Gender Identity Female 10/28/2020 10:11 PM PROFESSOR OF GRAPHIC DESIGN Sexual Orientation Straight 10/28/2020 10 :11 PM PROFESSOR OF GRAPHIC DESIGN documented as of this encounter Plan of Treatment Upcoming Encounters Date Type Department Care Team ([facility] Contact Info) Description 08/21/2025 3:00 PM CDT Office Visit [facility] Health Weight Management Services [address] [place] [address], [address] [address] Phi Salas MD [address] [place] [address] [address] [place] [address] 08/24/2025 10:00 AM CDT Procedure visit [facility] Health Neurosciences [facility] [address] [address] Gilmar Mckenna MD [address] [place] [address] 200 [place] [phone] 08/24/2025 2:40 PM CDT Office Visit [facility] - Dermatology [address] [place] [phone] Joycelyn Fenton MD [facility] [place] [address] 09/19/2025 9:00 AM CDT Office Visit [facility] Health Weight Management Services [address] [place] [address] 09/19/2025 10:45 AM CDT Clinical Support [facility] Health Weight Management Services [address] [place] [address], [facility] 210 [place] [address] 11/02/2025 2:15 PM PROFESSOR OF GRAPHIC DESIGN Office Visit [facility] - Internal Med [address] [place] [address] [place] [phone] Chanel De Leon MD [address] [facility] [address] [phone] 11/21/2025 11:00 AM PROFESSOR OF GRAPHIC DESIGN Procedure visit [facility] Health Neurosciences [address] [place] [id number] Gilmar Mckenna MD [address] [place] [phone] 11/29/2025 3:00 PM PROFESSOR OF GRAPHIC DESIGN Office Visit [facility] - Sleep Services [address] [facility] [address] [place] [address] Komal Rich APNP-BATTERY STARTER [address] [facility] [address] [place] [address] documented as of this encounter Procedures Procedure Name Priority Date/Time Associated Diagnosis Comments VARICELLA ZOSTER ANTIBODY IGG Routine 12/19/2015 11:00 AM PROFESSOR OF GRAPHIC DESIGN documented in this encounter Results * VARICELLA ZOSTER ANTIBODY IGG (12/19/2015 11:00 AM PROFESSOR OF GRAPHIC DESIGN) Varicella zoster Virus Antibody IgG 682 Immune >165 index 2015 11:18 AM PROFESSOR OF GRAPHIC DESIGN [facility] Comment: Negative <135 Equivocal 135 - 165 Positive >165 A positive result generally indicates exposure to the pathogen or administration of specific immunoglobulins, but it is not indication of active infection or stage of disease. Blood specimen (specimen) BLOOD SPECIMEN / Unknown Venipuncture / Unknown 12/19/2015 11:00 AM PROFESSOR OF GRAPHIC DESIGN 12/19/2015 7:25 PM PROFESSOR OF GRAPHIC DESIGN Narrative [facility] - 2015 11:18 AM PROFESSOR OF GRAPHIC DESIGN Performed at: [address] [place] [id number] Pen Maker: Robe Lai PhD, Phone: [phone] us Provider Unknown LAB - CHEMISTRY ORDERABLES Mandy l Result [facility]) [address] [place] [address] documented in this encounter Visit Diagnoses Not on filedocumented in this encounter Additional Health Concerns Infection Onset Date Last Indicated Resolved Time COVID-19 Under Investigation 02/20/2020 02/20/2020 02/20/2020 11:56 PM CDT COVID-19 Under Investigation 09/18/2020 09/18/2020 09/18/2020 8:02 PM CDT COVID-19 Under Investigation 11/11/2021 11/11/2021 11/11/2021 11:20 PM PROFESSOR OF GRAPHIC DESIGN documented as of this encounter Care Teams Breast Splitter Relationship Specialty Start Date End Date Laura Del Angel MD PCP - General Family Medicine 05/11/12 08/19/16 Augusto aGrcias MD [address] [place] [address] PCP - General 12/03/19 12/20/19 Marquez Wu MD [address]60 [place] [address] PCP - General 07/18/20 09/23/20 Marty Harris MD [address] [facility] 2L [facility] [place] [address] PCP - Attributed-[facility] EHP STL 05/23/20 05/11/23 Nandini Zaldivar MD [address] [place] [address] PCP - General 10/30/20 11/19/20 Nandini Zaldivar MD [address] [place] [address] PCP - General 02/06/21 02/20/21 oRsina Sutton MD [address] [facility] 2[place] [address] PCP - General Internal Medicine 02/25/21 09/16/23 Antoine Díaz MD 1201 [place] [phone] PCP - General Internal Medicine 09/17/23 07/27/24 Rex Owens MD [facility] [place] [phone] PCP - General Internal Medicine 08/03/24 08/09/25 Chanel De Leon MD [address] [phone] PCP - General Internal Medicine 08/10/25 Nandini Zaldivar MD [address] [place] [address] Primary Care Provider Student Resident 07/13/20 0 Nandini Zaldivar MD [address] [facility] 2[address] [place] Resident - PCP Student Resident 02/25/21 05/19/23 Antoine Díaz MD [facility] [place] [phone] Resident - PCP Internal Medicine 05/20/23 09/16/23 Gilmar Mckenna MD [facility] [address] [place] [address] Neurology 06/23/24 documented as of this encounter
--- OUTSIDE RECORDS SUMMARY | 2025-08-14 16:21 | XMS_ITS | Encounter Summary ---
Author Organization [facility] Address [address] [place] [address] Care Team Providers Care Practicing Md Anesthesiologist Name Role Phone Gilmar Mckenna MD Unavailable Rex Owens MD Primary Care Provider [phone] Chanel De Leon MD Primary Care Provider [phone] Encounter Details Date Type Department Care Team (Late st Contact Info) Description 05/22/2025 Telephone [facility] - CYLINDER BLOCK MECHANIC [address] [facility] [address] [place] [address] Maya Valladares MD [address] [facility] 400 [place] [address] Social History Tobacco Use Types [...] place to sleep or slept in a senior living (including now)? No 10/21/2022 [place] Depression Scale Answer Date Recorded RETIRED: Total Score 2 10/24/2022 Last EPDS Self Harm Result Not on file 10/24 Education Answer Date Recorded What is the highest level of school you have completed or the highest degree you have received? 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 Not on file [...] of Assessment Author No 10/21/2022 6:00 PM OPERATIONS ASST Correa, S arah D, RN * Does [...] Description 08/21/2025 3:00 PM CDT Office Visit [facility] Weight Management Services [address] [place] [address] Phi Salas MD [address] [place] [address] 08/24/2025 10:00 AM CDT Procedure visit [facility] Health Neurosciences [address] [address] Gilmar Mckenna MD [address] [phone] 08/24/2025 2:40 PM CDT Office Visit [facility] - Dermatology [address] [facility], [place] [address] Joycelyn Fenton MD [address]01 [place] [address] 09/19/2025 9:00 AM CDT Office Visit [facility] Health Weight Management Services [address] [place] [address] 09/19/2025 10:45 AM CDT Clinical Support [facility] Weight Management Services [address] [place] [address], [facility] 210 [place] [address] 11/02/2025 2:15 PM OPERATIONS ASST Office Visit [facility] - Internal Med [address] [facility], [place] [phone] Chanel De Leon MD [address] [facility] DIV OF INT MED [address] [place] [phone] 11/21/2025 11:00 AM OPERATIONS ASST Procedure visit [facility] Health Neurosciences [address] [place] [address] Gilmar Mckenna MD [address] [place] [address] 11/29/2025 3:00 PM OPERATIONS ASST Office [facility] - Sleep Services [address] [facility] [address] [place] [address] Komal Rich, APNP-SENIOR SOFTWARE DEVELOPER [address] [facility] [address] [place] [phone] documented as of this encounter Visit Diagnoses Not on filedocumented in this encounter Care Teams Practicing Md Anesthesiologist Relationship Specialty Start Date End Date Rex Owens MD [address] [facility] [place] [address] PCP - General Internal Medicine 08/03/24 08/09/25 Chanel De Leon MD [address] [facility] DIV OF INT MED [address] [place] [phone] PCP - General Internal Medicine 08/10/25 Gilmar Mckenna MD [address] [place] [address] Neurology 06/23/24 documented as of this encounter
--- OUTSIDE RECORDS SUMMARY | 2025-08-14 16:21 | XMS_ITS | Clinical Summary ---
Author Organization [facility] Address [address] [place] [address] Care Team Providers Care Accounting Systems Manager Name Role Phone Unavailable Primary Care Provider [...]
--- OUTSIDE RECORDS SUMMARY | 2025-08-14 16:21 | XMS_ITS | Encounter Summary ---
Author Organization [facility] Address [address] [facility] [place] [address] Care Team Providers Care Production Tool Engineer Name Role Phone Gilmar Mckenna MD Unavailable Rex Owens MD Primary Care Provider Chanel De Leon MD Primary Care Provider [phone] Reason for Visit * Reason Onset Date Comments MEDICATION REFILL 09/24/2024 Encounter Details Date Type Department Care Team (Late st Contact Info) Description 09/24/2024 Refill [facility] Health Neurosciences [address] [facility] [address] [place] [address] Gilmar Mckenna MD [address] [place] [address] MEDICATION REFILL Social History Tobacco [...] place to sleep or slept in a fdc (including now)? No 10/21/2022 [place] Depression Scale Answer Date Recorded RETIRED: Total Score 2 10/24/2022 Last EPDS Self Harm Result Not on file 10/24 Education Answer Date Recorded What is the highest level of school you have completed or the highest degree you have received? 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 Weight Management Services [address] [place] [address] Phi Salas MD [address] [place] [address] 08/24/2025 10:00 AM CDT Procedure visit [facility] Health Neurosciences [address] [address] Gilmar Mckenna MD [address] [address] 08/24/2025 2:40 PM CDT Office Visit [facility] - Dermatology [address] [place] [address], [facility] [place] [address] Joycelyn Fenton MD [address]01 [place] [address] 09/19/2025 9:00 AM CDT Office Visit [facility] Health Weight Management Services [address] [place] [address] 09/19/2025 10:45 AM CDT Clinical Support [facility] Weight Management Services [address] [place] [address] 11/02/2025 2:15 PM DRIVER LICENSE TECHNICIAN Office Visit [facility] Group - Internal Med [address] [facility], [place] [address] Chanel De Leon MD [address] [facility] DIV OF INT MED [address] [place] [phone] 11/21/2025 11:00 AM DRIVER LICENSE TECHNICIAN Procedure visit [facility] Health Neurosciences [address] [place] [address] Gilmar Mckenna MD [address] [place] [address] 11/29/2025 3:00 PM DRIVER LICENSE TECHNICIAN Office Visit [facility]ician Group - Sleep Services [address] [facility] [address] [place] [phone] Komal Rich, APNP-INTERNAL WHOLESALER [address] [facility] [address] [place] [address] documented as of this encounter Visit Diagnoses Diagnosis Chronic migraine without aura without status migrainosus, not intractable Chronic migraine without aura, without mention of intractable migraine without mention of status migrainosus documented in this encounter Care Teams Production Tool Engineer Relationship Specialty Start Date End Date Rex Owens MD [address] [facility] [place] [phone] PCP - General Internal Medicine 08/03/24 08/09/25 Chanel De Leon MD 1225 [facility] DIV OF INT MED [address] [place] [phone] PCP - General Internal Medicine 08/10/25 Gilmar Mckenna MD [address] [place] [address] Neurology 06/23/24 documented as of this encounter
[2025-08-14] MEDS: LIDOCAINE 1% LOCAL INJ 10 ML VIAL (16:52)
[2025-08-14] MEDS: cefTRIAXone 1 GM VIAL IM (16:52)
[2025-08-14 16:59] VITALS: BP 118/74; PULSE 79; RESP 18; O2SAT 98
== END 2025-08-14 17:00 | disposition home or self-care (01) ==
LOC: ANHED 16:19
PROVIDERS: Emergency Medicine; Physician Assistant; Emergency Provider Emergency Medicine
DX: N39.0 Urinary tract infection, site not specified (principal); R31.9 Hematuria, unspecified; Z96.649 Presence of unspecified artificial hip joint
CPT/HCPCS: 36415; 74176; 80053; 81001; 81025; 85025; 87086; 96372; 99284; J0696; J2003